=== PATIENT | male | born 1950 | race Caucasian/White ===

== ENCOUNTER → 2020-08-02 09:42 | Outpatient (BNVA) | payer MEDICARE, SELFPAY | PROVIDERS: PCP Internal Medicine; Referring Provider Internal Medicine; Visit Provider Dietitian, Registered | DX: Z76.89 Persons encountering health services in other specified circumstances (principal) ==

== ENCOUNTER → 2020-09-15 08:21 | Outpatient (BNVA) | payer MEDICARE, SELFPAY | PROVIDERS: PCP Internal Medicine; Referring Provider Internal Medicine; Visit Provider Physician Assistant | DX: E66.9 Obesity, unspecified (principal) | CPT/HCPCS: Q3014 ==

== ENCOUNTER 2021-09-07 12:23 | Outpatient (REF) | payer MEDICARE, SELFPAY | END 2021-09-07 12:24 | disposition home or self-care (01) | LOC: HO.LAB 12:23 | PROVIDERS: PCP Internal Medicine; Visit Provider Internal Medicine | DX: Z20.822 Contact with and (suspected) exposure to COVID-19 (principal) | CPT/HCPCS: C9803; U0003; U0005 ==

== ENCOUNTER 2024-05-07 08:26 | Outpatient (AMB) | payer MEDICARE, SELFPAY ==
--- NOTE | 2024-05-07 08:40 | MHC.PC.OV ---
Vital Signs 05/07/24 08:43 Height 5 ft 9 in Weight 198 lb 8 oz BMI 29.3 BP 108/54 L Blood Pressure Location Rt brachial Position Sitting Respiration 12 Pulse 75 Pulse Source Pulse Oximeter Pulse Oximetry (%) 96 Oxygen Delivery Method Room Air Intake Visit Reasons: PA from [facility] Intake Note: Patient is here to transfer from [facility] to [facility]. Patient has concerns for anxiety and would like to review medications. 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 Accompanied by: self Allergies amoxicillin Allergy (Unknown, Verified 05/07/24 08:47) Rash Tobacco use date assessed: 05/07/24 Fall risk assessment: No Falls in past year Last assessed Fall Risk: 05/07/24 Dental Screening Dental Screen Date: 05/07/24 Did you have a dental visit in the last 12 months?: Yes Did you have a dental problem in the last 6 months where you did not have access to dental care?: No Was dental information given to patient?: Patient has dentist HPI HPI Comments History of Present Illness Details The patient is a 73-year-old male with a past medical history of Lyme disease, DJD, BPH, AVNRT, AFib, left calf hematoma presenting for follow-up Patient is concerned about increasing of anxiety. His adult son continues to have addiction issues which causes a great deal of stress and anxiety. He was following with [facility], a therapist and was doing well however now needs a new therapist. He continues on sertraline which has been fairly helpful Patient has pain and numbness in the hands bilaterally. He went for evaluation of possible carpal tunnel. EMG not consistent with this. MRA neck ordered showed moderate to severe narrowing at multiple levels. Incidentally noted was a question of mucosal thickening versus mass etc. and ethmoid sinus. He has been having a few week history of increased right ear pain and upper maxillary discomfort. It is also having some dental issues. He was started on Flonase by urgent care. Cardiovascular: Follows with Cardiology. Given lack of prior CVA his history of AVNRT status post ablation decided no indication for further anticoagulation or even aspirin Last year in 2021 patient suffered from lower left extremity swelling and discomfort. CT of the leg showed findings most consistent with an evolving hematoma involving the posterior medial superficial and deep compartments of the left calf. He then had MRI which was recommended by Radiology and this was reassuring Chronic pain: Osteoarthritis and history of Lyme -knee pain: Follows with [facility]. Has history of bilateral knee replacement -low back pain: X-ray from [place] significant loss of height stenosis at L3 and S1-S3. 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 Severe bilateral neural foraminal stenosis is seen at the level with likely compression of both exiting L5 nerve roots. At L2-3 there is a left foraminal protrusion with possible compression of the exiting left L2 nerve root. Other degenerative changes as detailed above. He was referred and then evaluated by pain management rehabilitation. BPH: Stable. History of TURP Preventive Colonoscopy up-to-date. He has chronic mild anemia. ROS CONSTITUTIONAL: Denies weight loss, fever and chills. HEENT: Denies changes in vision and hearing. RESPIRATORY: Denies SOB and cough. CV: Denies palpitations and CP GI: Denies abdominal pain, nausea, vomiting and diarrhea. : Denies dysuria and urinary frequency. MSK: Denies new myalgia and joint pain. SKIN: Denies rash and pruritus. NEUROLOGICAL: Denies headache PSYCHIATRIC: Denies recent changes in mood. PHYSICAL EXAM: GENERAL: Alert and oriented x 3. NAD EYES: EOMI. Anicteric. HENT: Moist mucous membranes. No scleral icterus. No cervical lymphadenopathy. LUNGS: Clear to auscultation bilaterally. CARDIOVASCULAR: Regular rate and rhythm. No murmur. No JVD. ABDOMEN: Soft, non-tender +bs EXTREMITIES: No edema. Non-tender. SKIN: No rashes or lesions. Warm. NEUROLOGIC: No focal neurological deficits. CN II-XII grossly intact PSYCHIATRIC: Cooperative. Appropriate mood and affect [facility] Medical History Incontinence Eczema Arthritis Sinusitis Obesity Obesity Surgical History History of transurethral resection of prostate History of knee replacement procedure of right knee History of knee replacement procedure of left knee Family History Mother Cancer of kidney Father Pancreatic cancer Family/Other Breast cancer Prostate cancer Social History Housing: House Patient Tobacco Use Status: Never used Tobacco e-Cigarette/Vaping Use: Never Used service: No Current occupational status: retired Cognitive needs: No Hearing needs: Yes (wears hearing aids) Vision needs: Yes (wears glasses) Questionnaire PHQ-9 Over the last 2 weeks, how often have you been bothered by any of the following problems? 1. Little interest or pleasure in doing things: not at all 2. Feeling down, depressed, or hopeless: several days 3. Trouble falling or staying asleep, or sleeping too much: not at all 4. Feeling tired or having little energy: not at all 5. Poor appetite or overeating: not at all 6. Feeling bad about yourself - or that you are a failure or have let yourself or your family down: not at all 7. Trouble concentrating on things, such as reading the newspaper or watching television: not at all 8. Moving or speaking so slowly that other people could have noticed. Or the opposite - being so fidgety or restless that you have been moving around a lot more than usual: not at all 9. Thoughts that you would be better off or of hurting yourself in some way: not at all Total score: 1 Depression Screening Interpretation: Negative (neg) Depression Screening Done: Yes 46830 - PHQ-9 Billing: Yes Source: Developed by Drs. Mynor Sutton, Terrie Rojas, Octavio Sandhu and colleagues, with an educational emerson from [employer]. Thrive Questionnaire Date Thrive assessed: 05/07/24 I am a: Patient What is your living situation today?: I have a steady place to live Within the past 12 months, did the food you bought not last and you didn't have the money to get more?: Never true Within the past 12 months, did you worry whether your food would run out before you got money to buy more?: Never true Do you have trouble paying for medicines?: No Do you have trouble getting transportation to medical appointments?: No Do you have trouble paying your heating and electricity bill?: No Do you have trouble taking care of your child, family member or friend?: No Do you have trouble with day-to-day activities such as bathing, preparing meals, shopping, managing finances, etc.?: No Are you currently unemployed and looking for a job?: No Are you interested in more education?: No Please select the resources that you would like help with: None Currently or been in a relationship where the following occur: No concerns reported THRIVE Score: 0 AUDIT C Alcohol Use Questionnaire (AUDIT-C) 1. How often do you have a drink containing alcohol?: 2-3 times a week 2. How many drinks containing alcohol do you have on a typical day when you are drinking?: 1 or 2 3. How often do you have six or more drinks on one occasion?: Never Total Score: 3 SAV-7 AMB Questionnaire SAV-7 Date SAV - 7 assessed: 05/07/24 Feeling nervous, anxious, or on edge: 1 = Several days Not being able to stop or control worryin = Several days Worrying too much about different things: 1 = Several days Trouble relaxin = Several days Being so restless that it is hard to sit still: 1 = Several days Becoming easily annoyed or irritable: 1 = Several days Feeling afraid as if something awful might happen: 1 = Several days Total SAV-7 score (0-4 normal; 5-9 mild; 10-14 moderate; 15-21 severe): 7 Source: Developed by Drs. Mynor Sutton, Terrie Rojas, Octavio Sandhu and colleagues, with an educational emerson from [employer]. SAV-7 Assessment Billing SAV-7 Assessment Tool: SAV-7 Assessment 89610 Physical exam (Primary Care) Vital Signs: Last Vital Signs Pulse 75 05/07/24 08:43 Resp 12 05/07/24 08:43 BP 108/54 L 05/07/24 08:43 Pulse Ox 96 05/07/24 08:43 Oxygen Delivery Method Room Air 05/07/24 08:43 BMI result Body Mass Index 29.3 Tobacco/Smoking Status: Tobacco use Status Tobacco use date assessed 05/07/24 05/07/24 08:51 Patient Tobacco Use Status Never used Tobacco 05/07/24 08:51 e-Cigarette/Vaping Use Never Used 05/07/24 08:51 PHQ-9: PHQ-9 Score PHQ-9: Total score 1 05/09/24 20:09 Depression Screening Interpretation: Negative (neg) Thrive Assessment: Date of Thrive Assessment Date Thrive assessed 05/07/24 05/07/24 08:54 Currently or been in a relationship where the following occur: No concerns reported Assessment and Plan Assessment & Plan (1) Anxiety: Code(s): F41.9 - Anxiety disorder, unspecified Plan: Anxiety, stress-referral for therapy Continue SSRI (2) Hyperlipidemia: Code(s): E78.5 - Hyperlipidemia, unspecified Qualifiers: Hyperlipidemia type: mixed hyperlipidemia Qualified Code(s): E78.2 - Mixed hyperlipidemia Plan: continue statin therapy. Lipids well controlled on medications (3) Lumbar degenerative disc disease: Code(s): M51.36 - Other intervertebral disc degeneration, lumbar region Plan: stable Orders: Orders Complete Blood Count Auto Diff 6 Months D64.9 - Anemia, unspecified, E78.5 - Hyperlipidemia, unspecified, F41.9 - Anxiety disorder, unspecified, I47.19 - Other supraventricular tachycardia, M51.36 - Other intervertebral disc degeneration, lumbar region, Z12.5 - Encounter for screening for malignant neoplasm of prostate Prostate Specific Antigen 6 Months D64.9 - Anemia, unspecified, E78.5 - Hyperlipidemia, unspecified, F41.9 - Anxiety disorder, unspecified, I47.19 - Other supraventricular tachycardia, M51.36 - Other intervertebral disc degeneration, lumbar region, Z12.5 - Encounter for screening for malignant neoplasm of prostate Comprehensive Met. Panel 6 Months D64.9 - Anemia, unspecified, E78.5 - Hyperlipidemia, unspecified, F41.9 - Anxiety disorder, unspecified, I47.19 - Other supraventricular tachycardia, M51.36 - Other intervertebral disc degeneration, lumbar region, Z12.5 - Encounter for screening for malignant neoplasm of prostate Lipid Panel 6 Months D64.9 - Anemia, unspecified, E78.5 - Hyperlipidemia, unspecified, F41.9 - Anxiety disorder, unspecified, I47.19 - Other supraventricular tachycardia, M51.36 - Other intervertebral disc degeneration, lumbar region, Z12.5 - Encounter for screening for malignant neoplasm of prostate Referrals Behavioral Health Referral F41.9 - Anxiety disorder, unspecified Coding Level of Care Code Est Pt Level 5 (59840) Diagnoses Anxiety F41.9 Mixed hyperlipidemia E78.2 Hyperlipidemia type: mixed hyperlipidemia Lumbar degenerative disc disease M51.36 Additional Codes SAV-7 Assessment Billing - SAV-7 Assessment Tool: SAV-7 Assessment 47191 ([id number]) Time Spent (min) 53
[2024-05-07 08:43] VITALS: BP 108/54; PULSE 75; RESP 12; O2SAT 96; BMI 29.3
== END 2024-05-07 09:20 | disposition home or self-care (01) ==
PROVIDERS: PCP Internal Medicine; Visit Provider Internal Medicine
DX: E78.2 Mixed hyperlipidemia (principal); F41.9 Anxiety disorder, unspecified; M51.36 Other intervertebral disc degeneration, lumbar region
CPT/HCPCS: 99215

== ENCOUNTER 2024-11-19 08:28 | Outpatient (AMB) | payer MEDICARE, SELFPAY ==
--- NOTE | 2024-11-19 08:34 | A.OFFPC_ITS ---
Vital Signs 11/19/24 08:42 Height 5 ft 9 in Weight 205 lb BMI 30.3 BP 108/58 L Blood Pressure Location Lt brachial Position Sitting Respiration 14 Pulse 62 Pulse Source Pulse Oximeter Pulse Oximetry (%) 96 Oxygen Delivery Method Room Air Intake Visit Reasons: awv/physical Intake Note: Medical wellness visit [facility] Insulation Required: No Allergies amoxicillin Allergy (Unknown, Verified 11/19/24 08:34) Rash Tobacco use date assessed: 05/07/24 Fall risk assessment: 2 + Falls in past year Last assessed Fall Risk: 11/19/24 Dental Screening Dental Screen Date: 05/07/24 HPI HPI Comments History of Present Illness Details The patient is a 73-year-old male with a past medical history of Lyme disease, DJD, BPH, AVNRT, AFib, left calf hematoma presenting for follow-up Patient has pain and numbness in the hands bilaterally. He went for evaluation of possible carpal tunnel. EMG not consistent with this. MRA neck ordered showed moderate to severe narrowing at multiple levels. Incidentally noted was a question of mucosal thickening versus mass etc. and ethmoid sinus. He has been having a few week history of increased right ear pain and upper maxillary discomfort. It is also having some dental issues. He was started on Flonase by urgent care. Cardiovascular: Follows with [facility]. Given lack of prior CVA his history of AVNRT status post ablation decided no indication for further anticoagulation or even aspirin Last year in 2021 patient suffered from lower left extremity swelling and discomfort. CT of the leg showed findings most consistent with an evolving hematoma involving the posterior medial superficial and deep compartments of the left calf. He then had MRI which was recommended by Radiology and this was reassuring Chronic pain: Osteoarthritis and history of Lyme . Sees [facility] and dr Waldrop in pain management -knee pain: Follows with [facility]. Has hist ory of bilateral knee replacement -low back pain: X-ray from [place] signi ficant loss of height stenosis at L3 and S1-S3. 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 Severe bilateral neural foraminal stenosis is seen at the level with likely compression of both exiting L5 nerve roots. At L2-3 there is a left foraminal protrusion with possible compression of the exiting left L2 nerve root. Other degenerative changes as detailed above. He was referred and then evaluated by pain management rehabilitation. BPH: Stable. History of TURP. Follows with Dr Christianson RAIN: Follow with Dr Davis for Sleep apnea Follows with ophtho Dr Carballo BH: Follows with family counseling. Son seems to be doing a little bit better. [facility]es [facility]. Son is following with [facility]. Patient is concerned about increasing of anxiety. His adult son continues to have addiction issues which causes a great deal of stress and anxiety. He was following with [facility], a therapist and was doing well however now needs a new therapist. He continues on sertraline which has been fairly helpful Preventive Colonoscopy up-to-date. He has chronic mild anemia. Had RSV and flu vaccine HRA reviewed-to scan Care team updated-HPI 12/06 memory No falls Medications reconciled ROS CONSTITUTIONAL: Denies weight loss, fever and chills. HEENT: Denies changes in vision and hearing. RESPIRATORY: Denies SOB and cough. CV: Denies palpitations and CP GI: Denies abdominal pain, nausea, vomiting and diarrhea. : Denies dysuria and urinary frequency. MSK: Denies new myalgia and joint pain. SKIN: Denies rash and pruritus. NEUROLOGICAL: Denies headache PSYCHIATRIC: Denies recent changes in mood. PHYSICAL EXAM: GENERAL: Alert and oriented x 3. NAD EYES: EOMI. Anicteric. HENT: Moist mucous membranes. No scleral icterus. No cervical lymphadenopathy. LUNGS: Clear to auscultation bilaterally. CARDIOVASCULAR: Regular rate and rhythm. No murmur. No JVD. ABDOMEN: Soft, non-tender +bs EXTREMITIES: No edema. Non-tender. SKIN: No rashes or lesions. Warm. NEUROLOGIC: No focal neurological deficits. CN II-XII grossly intact PSYCHIATRIC: Cooperative. Appropriate mood and affect [facility] Medical History Incontinence Eczema Arthritis Sinusitis Obesity Obesity Surgical History History of transurethral resection of prostate History of knee replacement procedure of right knee History of knee replacement procedure of left knee Family History Mother Cancer of kidney Father Pancreatic cancer Family/Other Breast cancer Prostate cancer Social History Housing: House Alcohol intake: current Patient Tobacco Use Status: Never used Tobacco e-Cigarette/Vaping Use: Never Used service: No Current occupational status: retired Cognitive needs: No Hearing needs: Yes (wears hearing aids) Vision needs: Yes (wears glasses) Questionnaire PHQ-9 Over the last 2 weeks, how often have you been bothered by any of the following problems? 1. Little interest or pleasure in doing things: several days 2. Feeling down, depressed, or hopeless: not at all 3. Trouble falling or staying asleep, or sleeping too much: not at all 4. Feeling tired or having little energy: not at all 5. Poor appetite or overeating: not at all 6. Feeling bad about yourself - or that you are a failure or have let yourself or your family down: several days 7. Trouble concentrating on things, such as reading the newspaper or watching television: not at all 8. Moving or speaking so slowly that other people could have noticed. Or the opposite - being so fidgety or restless that you have been moving around a lot more than usual: not at all 9. Thoughts that you would be better off or of hurting yourself in some way: not at all Total score: 2 Depression Screening Interpretation: Negative Depression Screening Done: Yes 12760 - PHQ-9 Billing: Yes Source: Developed by Drs. Mynor Sutton, Terrie Rojas, Octavio Sanduh and colleagues, with an educational emerson from [employer]. Thrive Questionnaire Date Thrive assessed: 11/16/24 I am a: Patient What is your living situation today?: I have a steady place to live Within the past 12 months, did the food you bought not last and you didn't have the money to get more?: Never true Within the past 12 months, did you worry whether your food would run out before you got money to buy more?: Never true Do you have trouble paying for medicines?: No Do you have trouble getting transportation to medical appointments?: No Do you have trouble paying your heating and electricity bill?: No Do you have trouble taking care of your child, family member or friend?: No Do you have trouble with day-to-day activities such as bathing, preparing meals, shopping, managing finances, etc.?: No Are you currently unemployed and looking for a job?: No Are you interested in more education?: Yes Please select the resources that you would like help with: None Currently or been in a relationship where the following occur: No concerns reported THRIVE Score: 0 AUDIT C Alcohol Use Questionnaire (AUDIT-C) 1. How often do you have a drink containing alcohol?: 4 or more times a week 2. How many drinks containing alcohol do you have on a typical day when you are drinking?: 1 or 2 3. How often do you have six or more drinks on one occasion?: Never Total Score: 4 SAV-7 AMB Questionnaire SAV-7 Date SAV - 7 assessed: 11/19/24 Feeling nervous, anxious, or on edge: 1 = Several days Not being able to stop or control worryin = Not at all Worrying too much about different things: 0 = Not at all Trouble relaxin = Several days Being so restless that it is hard to sit still: 0 = Not at all Becoming easily annoyed or irritable: 1 = Several days Feeling afraid as if something awful might happen: 0 = Not at all Total SAV-7 score (0-4 normal; 5-9 mild; 10-14 moderate; 15-21 severe): 3 Source: Developed by Drs. Mynor Sutton, Terrie Rojas, Octavio Sandhu and colleagues, with an educational emerson from [employer]. SAV-7 Assessment Billing SAV-7 Assessment Tool: SAV-7 Assessment 78851 Physical exam (Primary Care) Vital Signs: Last Vital Signs Pulse 62 11/19/24 08:42 Resp 14 11/19/24 08:42 BP 108/58 L 11/19/24 08:42 Pulse Ox 96 11/19/24 08:42 Oxygen Delivery Method Room Air 11/19/24 08:42 BMI result Body Mass Index 30.3 Tobacco/Smoking Status: Tobacco use Status Tobacco use date assessed 05/07/24 11/19/24 08:34 Patient Tobacco Use Status Never used Tobacco 11/19/24 08:34 e-Cigarette/Vaping Use Never Used 02/14/25 08:34 PHQ-9: PHQ-9 Score PHQ-9: Total score 2 11/19/24 08:34 Depression Screening Interpretation: Negative Thrive Assessment: Date of Thrive Assessment Date Thrive assessed 11/16/24 11/19/24 08:34 Currently or been in a relationship where the following occur: No concerns reported Coding Level of Care Code Est Pt Level 4 (95531) Complex EM visit Add On G2211 Diagnoses Encounter for annual wellness exam in Medicare patient Z00.00 Mixed hyperlipidemia E78.2 Hyperlipidemia type: mixed hyperlipidemia Degeneration of intervertebral disc of lumbar region with discogenic back pain and lower extremity pain M51.362 Disc-related pain type: discogenic back pain and lower extremity pain Anxiety F41.9 Additional Codes SAV-7 Assessment Billing - SAV-7 Assessment Tool: SAV-7 Assessment 14078 ( [id number]) PHQ-9 - 20887 - PHQ-9 Billing: Yes ([id number]) Assessment & Plan Assessment & Plan (1) Encounter for annual wellness exam in Medicare patient: Code(s): Z00.00 - Encounter for general adult medical examination without abnormal findings Category: Medical Plan: see HPI Preventive measures up to date. Interval history reviewed (2) Hyperlipidemia: Code(s): E78.5 - Hyperlipidemia, unspecified Category: Medical Qualifiers: Hyperlipidemia type: mixed hyperlipidemia Qualified Code(s): E78.2 - Mixed hyperlipidemia Plan: stable on current medication (3) Lumbar degenerative disc disease: Code(s): M51.36 - Other intervertebral disc degeneration, lumbar region Category: Medical Qualifiers: Disc-related pain type: discogenic back pain and lower extremity pain Qualified Code(s): M51.362 - Other intervertebral disc degeneration, lumbar region with discogenic back pain and lower extremity pain Plan: stable (4) Anxiety: Code(s): F41.9 - Anxiety disorder, unspecified Category: Medical Plan: stable with ongoing therapy
[2024-11-19 08:42] VITALS: BP 108/58; PULSE 62; RESP 14; O2SAT 96; BMI 30.3
--- OUTSIDE RECORDS SUMMARY | 2024-11-19 08:45 | XMS_ITS | Data Portability ---
Author Organization [place] - [facility], Allergy Address [address] [address] Care Team Providers Care Fish Cleaner Name Role Phone ReynaldoROHITH KEYES Primary Care Provider [phone] Assessment Encounter Date Assessment Date Assessment LastModified by Organization Details LastModified Time 08/02/2024 08/02/2024 On examination today there is no purulent rhinorrhea noted. Nasal mucosa is healthy in appearance. We again discussed that his CT scan findings are mild, and without any symptoms, there is no further intervention or follow up required. He may call if needed. [email or web address] Not available 08/02/2024 11:09:10 Plan of Treatment Reminders Order Date Submit Date Provider Last Modified By Organization Details Last Modified Time Details Appointments None record ed. Lab None record ed. Referral None record ed. Procedures None record ed. Surgeries None record ed. Imaging None record ed. Medication Orders None record ed. Patient TargetsNo targets recorded. Patient InstructionsNo instructions recorded. Reason for Referral None Reported. Results Created Date Observation Date Name Description Value Unit Range Abnormal Flag Note LastModifiedBy Organization Detail LastModifiedTime 08/03/20 24 02/09/2024 CT, maxil lofac ial, w/o contr ast No observ ation record ed. [email or web address] Not Available 2023 11:52:35 08/03/20 24 12/18/2023 MRI, cervi armen spine , w/o contr ast No observ ation record ed. [email or web address] Not Available 2023 11:56:48 Result Notes None recorded. Problems Name Problem SNOMED Code Status Onset Date Resolution Date Notes Provider Name and Address Organization Details Recorded Time Chronic ethmoidal sinusitis 95906920 Active 024 VINCENT MTZ MD 100 [facility] 100, [place], [address] , [place] - [facility] 12:14:38 Toothache 41353712 Active 024 VINCENT MTZ MD 100 [facility] [place],[address] [address], [place], [address] , [place] - [facility] [place] 4 12:14:47 Atypical facial pain 71563503 Active 024 VINCENT MTZ MD 100 [facility] [place] 100, [place], [address] , [place] - [facility] [place] 4 12:21:23 Problem Notes None recorded. Procedures Surgical History Date Name Laterality Status Provider Name and Address Organization Details Recorded Time 03/04/2024 NasalEndos copy_DP completed VINCENT MTZ MD 100 [facility],[place] [address], [place], [address], [place] - [facility] 03/04/2024 12:20:41 Imaging Results Imaging Date Name Status LastModified by Organiz ation Details LastModified Time 02/09/2024 CT, maxillofacial , w/o contrast completed Information not available 08/03/2024 11:52:35 12/18/2023 MRI, cervical spine, w/o contrast completed Information not available 08/03/2024 11:56:48 Procedure Notes None recorded. Medical Equipment None Reported. Medications Name Sig Start Date Stop Date Status Note LastModified by Organization Details LastModified Time doxycycline hyclate 100 mg capsule TAKE 1 CAPSULE BY MOUTH TWICE A DAY FOR 21 DAYS active Not Available Not Available No t Available atorvastatin 20 mg tablet TAKE 1 TABLET BY MOUTH EVERY DAY active Not Available Not Available No t Available clindamycin HCl 300 mg capsule TAKE 2 CAPSULES ONE HOUR PRIOR TO ANY DENTAL WORK/CLEANI NGS. NEEDED active Not Available Not Available No t Available sildenafil 100 mg tablet TAKE 1 TABLET BY MOUTH PRIOR TO SEXUAL ACTIVITY NEEDED- NOT COVERED active Not Available Not Available No t Available tamsulosin 0.4 mg capsule TAKE 2 CAPSULES BY MOUTH AT BEDTIME active Not Available Not Available No t Available betamethason e dipropionate 0.05 % topical cream APPLY TO AFFECTED AREA TWICE A DAY FOR 14 DAYS NEEDED FOR RASH active Not Available Not Available No t Available mupirocin 2 % topical ointment APPLY TO AFFECTED AREA ON THE KNEE ONCE DAILY active Not Available Not Available No t Available gabapentin 100 mg capsule active Not Available Not Available Not Available methylpredni solone 4 mg tablets in a dose pack TAKE 6 TABLETS ON DAY 1 DIRECTED ON PACKAGE AND DECREASE BY 1 TAB EACH DAY FOR A TOTAL OF 6 DAYS active Not Available Not Available No t Available fluticasone propionate 50 mcg/actuatio n nasal spray,suspen ricardo SPRAY 1 SPRAY INTO EACH NOSTRIL EVERY DAY *SHAKE WEL BEFORE USING* active Not Available Not Available No t Available sertraline 50 mg tablet active Not Available Not Available Not Available doxycycline hyclate 100 mg tablet TAKE 1 TABLET BY MOUTH EVERY 12 HOURS FOR 14 DAYS active Not Available Not Available Not Available finasteride 5 mg tablet TAKE 1 TABLET BY MOUTH EVERY DAY active Not Available Not Available No t Available oxycodone 5 mg tablet PLEASE SEE ATTACHED FOR DETAILED DIRECTIONS active Not Available Not Available N ot Available diclofenac 1 % topical gel APPLY TO AFFECTED AREA 4 TIMES A DAY active Not Available Not Available Not Available Tiadylt ER 180 mg capsule,exte nded release active Not Available Not Available Not Available Vitals Date Recorded Heart rate Body temperature Body height Body mass index (BMI) Body weight Systolic blood pressure Diastolic blood pressure Provider Name and Address Organization Details Last Updated DateTime 4 78 /min 97 [degF] 175.26 cm 29.5 kg/m2 09404.4 7 g 117 mm[Hg] 73 mm[Hg] Dari Harper i [place] - [facility] 4 11:52:18 Date Recorded Body height Body mass index (BMI) Body weight Provider Name and Address Organization Details Last Updated DateTime 08/02/2024 175.26 cm 29.5 kg/m2 24020.47 g Dari Shultz [place] [facility] 08/02/2024 10:36:11 Social History None recorded. Functional Status None recorded. Mental Status None recorded. Family History Nothing Reported. Medical History No medical history recorded. Past Encounters Encounter ID Performer Location Encounter Start Date Encounter Closed Date Diagnosis/Indication Diagnosis SNOMED-CT Code Diagnosis ICD10 Code Diagnosis Note [id number] VINCENT MTZ MD [facility] 100 [place] [address] 03/04/2024 11:25:37 03/04/2024 12:27:55 Chronic ethmoidal sinusitis 98124839 J32.2 Symptomati raz improved on doxy. No purulence or polyps on nasal endoscopy. No need for surgical interventi on. I recommend he complete his course of doxy and have regular dental visits. I personally reviewed his CT scan. Toothache 46843346 K08.8 9 resolved. Atypical facial pain 713 82932 G50.1 resolved [id number] ADAMA RYAN MD [facility] on [address] [place] [address] 08/02/2024 10:33:31 08/02/2024 10:58:27 Chronic ethmoidal sinusitis 22864907 J32.2 Health Concerns Section Related Observation LastModified by Organization Detai ls LastModified Time None Recorded Concern Status LastModified by Organization Details LastModified Time None Recorded Advance Directives Directive None Recorded Payers Encounter Date Sequence Insurance Name Policy Number Policy King Covered Member ID King Member ID Guarantor Name 03/04/2024 1 [place] [employer] Vincent Beal [id number] Vincent Beal 03/04/2024 2 [facility] [id number] Vincent Beal [id number] Vincent Beal 08/02/2024 1 [place] [facility] GOVERNMENT SERVICES Vincent Beal [id number] Vincent Beal 08/02/2024 2 [facility] [id number] Vincent Beal [id number] Vincent Beal Notes Date Note Type Note Provider Name and Address Organization Details Recorded Time 03/04/2024 text/html He presents for sinusitis. He had a CT max/face 02/09/24 which showed maxillary and ethmoidal sinus disease (on my personal review it was very mild). He reports poor teeth and dental pain in his right maxillary teeth. This has resolved. He is 1 week into a 2 week course of doxycycline. He has not had recurring sinusitis. VINCENT MTZ MD 100 [facility],[place] [address], [place], [address], [place] - [facility] 03/04/2024 12:22:10 08/02/2024 text/html 73 year old male presents today for follow up for sinus issues.He had an MRI in January of his c-spine which showed an incidental finding or some ethmoid sinus process. A follow up CT maxillofacial at [facility] showed opacification of bilateral ethmoid and maxillary sinuses. He was placed on two weeks of doxycycline and advised to follow up in our practice. He saw in May at which time the CT findings were felt to be minimal. Nasal endoscopy was normal. Given he was asymptomatic, no further follow up was recommended. The patient denies any changes in his health. He has chronic dental issues, but no chronic facial pain. No nasal drainage. ADAMA RYAN MD 100 [facility] 100, [place], [address], [place] [facility] 08/02/2024 16:32:14
== END 2024-11-19 09:20 | disposition home or self-care (01) ==
PROVIDERS: PCP Internal Medicine; Visit Provider Internal Medicine
DX: Z00.00 Encounter for general adult medical examination without abnormal findings (principal); E78.2 Mixed hyperlipidemia; M51.362 Other intervertebral disc degeneration, lumbar region with discogenic back pain and lower extremity pain; F41.9 Anxiety disorder, unspecified

== ENCOUNTER → 2024-11-19 08:28 | Outpatient (BNVA) | payer MEDICARE, SELFPAY | PROVIDERS: PCP Internal Medicine; Visit Provider Internal Medicine | DX: Z00.00 Encounter for general adult medical examination without abnormal findings (principal); M19.90 Unspecified osteoarthritis, unspecified site; N40.0 Benign prostatic hyperplasia without lower urinary tract symptoms; I49.1 Atrial premature depolarization; E78.2 Mixed hyperlipidemia; M51.362 Other intervertebral disc degeneration, lumbar region with discogenic back pain and lower extremity pain; F41.9 Anxiety disorder, unspecified | CPT/HCPCS: 96127; 99212 ==

== ENCOUNTER 2024-11-26 08:29 | Outpatient (REF) | payer MEDICARE, SELFPAY ==
--- OUTSIDE RECORDS SUMMARY | 2024-11-26 08:42 | XMS_ITS | Data Portability ---
Author Organization [place] - [facility], Allergy Address [address] [address] Care Team Providers Care Wrecking Supervisor Name Role Phone ReynaldoROHITH KEYES Primary Care Provider Assessment Encounter Date Assessment Date Assessment LastModified [...] Organization Details Recorded Time Chronic ethmoidal sinusitis 42210844 Active 024 VINCENT MTZ MD 100 [facility] 100, [place], [address] , [place] - [facility] 12:14:38 Toothache 62445411 Active 024 VINCENT MTZ MD 100 [facility] [place],[place] [address], [place], [address] , [place] - [facility] [place] 4 12:14:47 Atypical facial pain 34143761 Active 024 VINCENT MTZ MD 100 [facility] [place] 100, [place], [address] , [place] - [facility] [place] 4 12:21:23 Problem Notes None recorded. Procedures Surgical History Date Name Laterality Status Provider Name and Address Organization Details Recorded Time 03/04/2024 NasalEndos copy_DP completed VINCENT MTZ MD 100 [facility],[place] [address], [place], [address], [place] - [facility] 03/04/2024 12:20:41 Imaging Results Imaging Date Name [...] /min 97 [degF] 175.26 cm 29.5 kg/m2 10745.4 7 g 117 mm[Hg] 73 mm[Hg] Dari Harper i [place] - [facility] 4 11:52:18 Date Recorded Body height Body mass index (BMI) Body weight Provider Name and Address Organization Details Last Updated DateTime 08/02/2024 175.26 cm 29.5 kg/m2 71321.47 g Dari Shultz [place] [facility] 08/02/2024 10:36:11 Social History None recorded. Functional Status None recorded. Mental Status None recorded. Family History Nothing Reported. Medical History No medical history recorded. Past Encounters Encounter ID Performer Location Encounter Start Date Encounter Closed Date Diagnosis/Indication Diagnosis SNOMED-CT Code Diagnosis ICD10 Code Diagnosis Note [id number] VINCENT MTZ MD [facility] 100 [place] [address] 03/04/2024 11:25:37 03/04/2024 12:27:55 Chronic ethmoidal sinusitis 21902775 J32.2 Symptomati raz improved on doxy. No purulence or polyps on nasal endoscopy. No need for surgical interventi on. I recommend he complete his course of doxy and have regular dental visits. I personally reviewed his CT scan. Toothache 86886611 K08.8 9 resolved. Atypical facial pain 713 60139 G50.1 resolved [id number] ADAMA RYAN MD [facility] on [address] [place] [address] 08/02/2024 10:33:31 08/02/2024 10:58:27 Chronic ethmoidal sinusitis 40388086 J32.2 Health Concerns Section Related Observation LastModified by Organization Detai ls LastModified Time None Recorded Concern Status LastModified by Organization Details LastModified Time None Recorded Advance Directives Directive None Recorded Payers Encounter Date Sequence Insurance Name Policy Number Policy King Covered Member ID King Member ID Guarantor Name 03/04/2024 1 [place]ATIONAL [employer] Vincent Beal [id number] Vincent Beal 03/04/2024 2 [facility]) [id number] Vincent Beal [id number] Vincent Beal 08/02/2024 1 [place]IC[place]: [facility] GOVERNMENT SERVICES Vincent Beal [id number] Vincent Beal 08/02/2024 2 [facility]) [id number] Vincent Beal [id number] Vincent Beal Notes Date Note Type [...] had recurring sinusitis. VINCENT MTZ MD 100 [facility],[place] [address], [place], [address], [place] - [facility] 03/04/2024 12:22:10 08/02/2024 text/html 73 year old male presents today for follow up for sinus issues.He had an MRI in January of his c-spine which showed an incidental finding or some ethmoid sinus process. A follow up CT maxillofacial at [facility] showed opacification of bilateral ethmoid and [...] No nasal drainage. ADAMA RYAN MD 100 [facility] 100, [place], [address], [place] [facility] 08/02/2024 16:32:14
[2024-11-26 11:08] LABS: MANUAL DIFF FLAG NO
[2024-11-26 11:15] LABS: Basophils Percent Auto 0.4 % (0-2); Eosinophils Absolute Auto 0.3 X10*3/uL (0.0-0.4); Eosinophils Percent Auto 5.4 % (0-4); Hematocrit 42.8 % (42.0-52.0); Hemoglobin 14.5 g/dl (14.0-18.0); Imm Gran Abs Auto 0.02 X10*3/uL (0.00-0.03); Imm Gran Pct Auto 0.4 % (0.0-0.4); Lymphocytes Absolute Auto 1.1 X10*3/uL (1.2-4.9); Lymphocytes Percent Auto 22.9 % (20-40); Mean Corpuscular HGB Conc 33.9 g/dl (31.0-36.0); Mean Corpuscular Hemoglobin 32.2 pg (27.0-33.0); Mean Corpuscular Volume 94.9 fL (80.0-98.0); Mean Platelet Volume 10.6 fL (9.4-12.4); Monocytes Absolute Auto 0.5 X10*3/uL (0.1-1.2); Monocytes Percent Auto 10.8 % (2-11); Neutrophils Absolute Auto 2.8 x10*3/uL (2.0-8.3); Neutrophils Percent Auto 60.1 % (45-73); Platelet Count 136 X10*3/uL (160-400); Red Blood Count 4.51 X10*6/uL (4.60-5.80); Red Cell Distribution Width 11.9 % (11.0-16.0); White Blood Count 4.6 X10*3/uL (4.8-10.8)
[2024-11-26 11:42] LABS: Alanine Aminotransferase 25 U/L (0-40); Albumin Level 4.1 g/dL (3.5-5.0); Alkaline Phosphatase 54 U/L (39-117); Anion Gap 10 (12-20); Aspartate Amino Transferase 24 U/L (5-37); Bilirubin Total 0.7 mg/dL (0.0-1.0); Blood Urea Nitrogen 17 mg/dL (9-16); Calcium 9.2 mg/dL (8.4-10.2); Carbon Dioxide 30 mmol/L (22-29); Chloride 104 mmol/L (96-108); Cholesterol 159 mg/dL (<200); Estimated Glomerular Filt Rate > 60; Glucose Random 89 mg/dL (60-115); HDL Cholesterol 61 mg/dL (>40); LDL Cholesterol Calculated 82 mg/dL (<100); Potassium 3.9 mmol/L (3.3-5.1); Sodium 140 mmol/L (135-145); Total Protein 7.2 g/dL (6.5-8.0); Triglycerides 83 mg/dL (<150)
[2024-11-26 11:48] LABS: Prostate Specific Antigen 0.66 ng/mL (<0.05-4.0)
== END 2024-11-26 08:30 | disposition home or self-care (01) ==
LOC: HO.WFDLDS 08:29
PROVIDERS: Visit Provider Internal Medicine
DX: D64.9 Anemia, unspecified (principal); M51.360 Other intervertebral disc degeneration, lumbar region with discogenic back pain only; F41.9 Anxiety disorder, unspecified; I47.19 Other supraventricular tachycardia; E78.5 Hyperlipidemia, unspecified; Z12.5 Encounter for screening for malignant neoplasm of prostate
CPT/HCPCS: 36415; 80053; 80061; 84153; 85025

== ENCOUNTER 2025-01-17 13:13 | Outpatient (AMB) | payer MEDICARE, SELFPAY ==
--- NOTE | 2025-01-17 13:22 | A.OFFPC_ITS ---
Vital Signs 01/17/25 13:24 Height 5 ft 9 in Weight 205 lb 4 oz BMI 30.3 BP 112/52 L Blood Pressure Location Rt brachial Position Sitting Respiration 16 Pulse 81 Pulse Source Pulse Oximeter Pulse Oximetry (%) 96 Oxygen Delivery Method Room Air Intake Visit Reasons: Discharge Follow-Up Intake Note: Hospital follow up. Needs antibiotic for dental appt coming up in two weeks. Layout Mechanic Required: No Allergies amoxicillin Allergy (Unknown, Verified 01/17/25 13:22) Rash Tobacco use date assessed: 01/17/25 Fall risk assessment: 2 + Falls in past year (3) Last assessed Fall Risk: 01/17/25 Dental Screening Dental Screen Date: 01/17/25 Did you have a dental visit in the last 12 months?: Yes Did you have a dental problem in the last 6 months where you did not have access to dental care?: No Was dental information given to patient?: Patient has dentist HPI HPI Comments History of Present Illness Details The patient is a 74-year-old male with a past medical history of Lyme disease, DJD, BPH, AVNRT, AFib, left calf hematoma presenting for follow-up Recently hospitalized from 01/06/2025-01/07/2025. 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 Was just jotting down notes when he lost consciousness. No prodromal symptoms. No positional changes. Labs with Na 130- ACS r/o. Negative orthostatics. Telemetry normal. Cardiovascular: Follows with [facility]. Given lack of prior CVA his history of AVNRT status post ablation decided no indication for further anticoagulation or even aspirin. Recent syncopal episode as noted above Last year in 2021 patient suffered from lower left extremity swelling and discomfort. CT of the leg showed findings most consistent with an evolving hematoma involving the posterior medial superficial and deep compartments of the left calf. He then had MRI which was recommended by Radiology and this was reassuring Chronic pain: Osteoarthritis and history of Lyme . Sees [facility] and dr Waldrop in pain management -Neck pain-severe DDD. Upcoming visit [facility]. Patient has pain and numbness in the hands bilaterally. He went for evaluation of possible carpal tunnel. EMG not consistent with this. MRA neck ordered showed moderate to severe narrowing at multiple levels. -knee pain: Follows with [facility]. Has hist ory of bilateral knee replacement -low back pain: X-ray from [place] signi ficant loss of height stenosis at L3 and S1-S3. 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 Severe bilateral neural foraminal stenosis is seen at the level with likely compression of both exiting L5 nerve roots. At L2-3 there is a left foraminal protrusion with possible compression of the exiting left L2 nerve root. Other degenerative changes as detailed above. He was referred and then evaluated by pain management rehabilitation. BPH: Stable. History of TURP. Follows with Dr Christianson RAIN: Follow with Dr Davis for Sleep apnea Follows with ophtho Dr Carballo BH: Follows with counselor. Son continues to have addition issues. Goes to [facility]. Son is following with [facility]. Patient is concerned about increasing of anxiety. His adult son continues to have addiction issues which causes a great deal of stress and anxiety. He was following with [facility], a therapist and was doing well however now needs a new therapist. He continues on sertraline which has been fairly helpful Preventive Colonoscopy up-to-date. He has chronic mild anemia. Had RSV and flu vaccine ROS see HPI PHYSICAL EXAM: GENERAL: Alert and oriented x 3. NAD EYES: EOMI. Anicteric. HENT: Moist mucous membranes. No scleral icterus. No cervical lymphadenopathy. LUNGS: Clear to auscultation bilaterally. CARDIOVASCULAR: Regular rate and rhythm. No murmur. No JVD. ABDOMEN: Soft, non-tender +bs EXTREMITIES: No edema. Non-tender. SKIN: No rashes or lesions. Warm. NEUROLOGIC: No focal neurological deficits. CN II-XII grossly intact PSYCHIATRIC: Cooperative. Appropriate mood and affect [facility] Medical History Incontinence Eczema Arthritis Sinusitis Obesity Obesity Surgical History History of transurethral resection of prostate History of knee replacement procedure of right knee History of knee replacement procedure of left knee Family History Mother Cancer of kidney Father Pancreatic cancer Family/Other Breast cancer Prostate cancer Social History Housing: House Alcohol intake: current Patient Tobacco Use Status: Never used Tobacco e-Cigarette/Vaping Use: Never Used service: No Current occupational status: retired Cognitive needs: No Hearing needs: Yes (wears hearing aids) Vision needs: Yes (wears glasses) Questionnaire Thrive Questionnaire Date Thrive assessed: 11/16/24 AUDIT C Alcohol Use Questionnaire (AUDIT-C) 1. How often do you have a drink containing alcohol?: 2-3 times a week 2. How many drinks containing alcohol do you have on a typical day when you are drinking?: 1 or 2 3. How often do you have six or more drinks on one occasion?: Never Total Score: 3 SAV-7 AMB Questionnaire SAV-7 Date SAV - 7 assessed: 11/19/24 Source: Developed by Drs. Mynor Sutton, Terrie Rojas, Octavio Sandhu and colleagues, with an educational emerson from [employer]. Physical exam (Primary Care) Vital Signs: Last Vital Signs Pulse 81 01/17/25 13:24 Resp 16 01/17/25 13:24 BP 112/52 L 01/17/25 13:24 Pulse Ox 96 01/17/25 13:24 Oxygen Delivery Method Room Air 01/17/25 13:24 BMI result Body Mass Index 30.3 Tobacco/Smoking Status: Tobacco use Status Tobacco use date assessed 01/17/25 01/17/25 13:32 Patient Tobacco Use Status Never used Tobacco 01/17/25 13:32 e-Cigarette/Vaping Use Never Used 01/17/25 13:32 Thrive Assessment: Date of Thrive Assessment Date Thrive assessed 11/16/24 01/17/25 13:32 Coding Level of Care Code Est Pt Level 4 (20153) Complex EM visit Add On G2211 Diagnoses Syncope R55 Hyponatremia E87.1 Anxiety F41.9 AVNRT (AV alex re-entry tachycardia) I47.19 Assessment & Plan Assessment & Plan (1) Syncope: Code(s): R55 - Syncope and collapse Category: Medical (2) Hyponatremia: Code(s): E87.1 - Hypo-osmolality and hyponatremia Category: Medical (3) Anxiety: Code(s): F41.9 - Anxiety disorder, unspecified Category: Medical (4) AVNRT (AV alex re-entry tachycardia): Code(s): I47.19 - Other supraventricular tachycardia Category: Medical Plan hospital dc follow up hospital discharge reviewed. Labs reviewed. Recheck Na. Patient was well hydrated per history. concern for arryhthmia given history. Recommend urgent f/up with cardiology Neck DDD-follow up with NS as planned Orders: Orders Comprehensive Met. Panel Today E87.1 - Hypo-osmolality and hyponatremia Complete Blood Count Auto Diff Today D69.6 - Thrombocytopenia, unspecified Referrals Cardiology Referral I47.19 - Other supraventricular tachycardia, R55 - Syncope and collapse Medications: New azithromycin Take 500mg oral once one hour prior to dental work 500 mg PO ONCE 90 days PRN 10 tabs 1RF dental prophylaxis prednisone 40 mg (2 x 20 mg) PO DAILY 10 tabs 0RF cyclobenzaprine 10 mg PO BEDTIME PRN 30 tabs 0RF muscle spasm
[2025-01-17 13:24] VITALS: BP 112/52; PULSE 81; RESP 16; O2SAT 96; BMI 30.3
--- OUTSIDE RECORDS SUMMARY | 2025-01-17 15:11 | XMS_ITS | Data Portability ---
Author Organization [place] [facility], Allergy Address [address] [address] Care Team Providers Care Rn Gyn Name Role Phone ReynaldoROHITH KEYES Primary Care Provider [phone] Assessment Encounter Date Assessment Date Assessment LastModified [...] Organization Details Recorded Time Chronic ethmoidal sinusitis [id number] Active 024 VINCENT MTZ MD 100 [facility] [place] [address], [place], [address] , [place] - [facility] 12:14:38 Toothache 99405229 Active 024 VINCENT MTZ MD 100 [facility] [place],[facility] 100, [place], [address] , [place] [facility] [place] 4 12:14:47 Atypical facial pain 99055868 Active 024 VINCENT MTZ MD 100 [facility] [place],[facility] 100, [place], [address] , [place] [facility] [place] 4 12:21:23 Problem Notes None recorded. Procedures Surgical History Date Name Laterality Status Provider Name and Address Organization Details Recorded Time 03/04/2024 NasalEndos copy_DP completed VINCENT MTZ MD 100 [facility] [address], [place], [address], [place] [facility] 03/04/2024 12:20:41 Imaging Results Imaging Date [...] /min 97 [degF] 175.26 cm 29.5 kg/m2 05904.4 7 g 117 mm[Hg] 73 mm[Hg] Dari Harper i [place] [facility] 4 11:52:18 Date Recorded Body height Body mass index (BMI) Body weight Provider Name and Address Organization Details Last Updated DateTime 08/02/2024 175.26 cm 29.5 kg/m2 40114.47 g Dari Shultz [place] [facility] 08/02/2024 10:36:11 Social History None recorded. Functional Status None recorded. Mental Status None recorded. Family History Nothing Reported. Medical History No medical history recorded. Past Encounters Encounter ID Performer Location Encounter Start Date Encounter Closed Date Diagnosis/Indication Diagnosis SNOMED-CT Code Diagnosis ICD10 Code Diagnosis Note [id number] VINCENT MTZ MD [facility] 100 [place] [address] 03/04/2024 11:25:37 03/04/2024 12:27:55 Chronic ethmoidal sinusitis 48861931 J32.2 Symptomati raz improved on doxy. No purulence or polyps on nasal endoscopy. No need for surgical interventi on. I recommend he complete his course of doxy and have regular dental visits. I personally reviewed his CT scan. Toothache 69198787 K08.8 9 resolved. Atypical facial pain 713 81301 G50.1 resolved [id number] ADAMA RYAN MD [facility] on [address] [place] [address] 08/02/2024 10:33:31 08/02/2024 10:58:27 Chronic ethmoidal sinusitis 30707013 J32.2 Health Concerns Section Related Observation LastModified by Organization Detai ls LastModified Time None Recorded Concern Status LastModified by Organization Details LastModified Time None Recorded Advance Directives Directive None Recorded Payers Encounter Date Sequence Insurance Name Policy Number Policy King Covered Member ID King Member ID Guarantor Name 03/04/2024 1 [place]IC[place] [employer] Vincent Beal [id number] Vincent Beal 03/04/2024 2 [facility] [place] (MEDICARE SUPPLEMENT) [id number] Vincent Beal [id number] Vincent Beal 08/02/2024 1 [place] B[place]: [facility] Vincent Beal [id number] Vincent Beal 08/02/2024 2 [facility]: [place] (MEDICARE SUPPLEMENT) [id number] Vincent Beal [id number] Vincent Beal Notes Date Note Type [...] had recurring sinusitis. VINCENT MTZ MD 100 [facility] [address], [place], [address], [place] [facility] 03/04/2024 12:22:10 08/02/2024 text/html 73 year old male presents today for follow up for sinus issues.He had an MRI in January of his c-spine which showed an incidental finding or some ethmoid sinus process. A follow up CT maxillofacial at [facility] showed opacification of bilateral ethmoid and maxillary [...] No nasal drainage. ADAMA RYAN MD 100 [facility] 100, [place], [address], [place] [facility] 08/02/2024 16:32:14
== END 2025-01-17 14:08 | disposition home or self-care (01) ==
PROVIDERS: PCP Internal Medicine; Visit Provider Internal Medicine
DX: R55 Syncope and collapse (principal); E87.1 Hypo-osmolality and hyponatremia; F41.9 Anxiety disorder, unspecified; I47.19 Other supraventricular tachycardia

== ENCOUNTER → 2025-01-17 13:13 | Outpatient (BNVA) | payer MEDICARE, SELFPAY | PROVIDERS: PCP Internal Medicine; Visit Provider Internal Medicine | DX: Z13.89 Encounter for screening for other disorder (principal) | CPT/HCPCS: 99212 ==

== ENCOUNTER 2025-01-17 14:12 | Outpatient (REF) | payer MEDICARE, SELFPAY ==
--- OUTSIDE RECORDS SUMMARY | 2025-01-17 16:35 | XMS_ITS | Clinical Summary ---
Author Organization [facility] Address [address] [place] [address] Care Team Providers Care Soa Integration Architect Name Role Phone Diya Neumann MD Primary Care Provider [phone] Immunizations Name Administration Dates Next Due Moderna SARS-CoV-2 COVID-19, mRNA, LNP-S, preservative free 12/07/2020 Surgical History Surgery Date Site/Laterality Comments TONSILLECTOMY 1950 PROCEDURE: HISTORICAL TONSILLECTOMY; COMMENT: pinky mass COLONOSCOPY 12/2011 PROCEDURE: [place] COLONOSCOPY STOMA DX INCLUDING COLLJ SPEC SPX; COMMENT: Normal OTHER SURGICAL HISTORY 12/2010 PROCEDURE: STRESS ECHO NS; COMMENT: Normal OTHER SURGICAL HISTORY 10/30/2021 PROCEDURE: HISTORY OTHER; COMMENT: Heart Ablation TURP / TRANSURETHRAL INCISIO N / DRAINAGE PROSTATE 10/06/2017 PROCEDURE: HISTORICAL TURP CATARACT EXTRACTION 2017 Bilateral PROCEDURE: HISTORICAL CATARACT REMOVAL Medical History Medical History Date Comments Anxiety DX:Anxiety; COMM ENT: Sertraline 100 Meniscus tear DX:Meniscus tear ; COMMENT: right knee Concussion DX:Concussion; C OMMENT: when he 15 or 16, cerebral Arm fracture DX:Arm fracture 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 Spencer on 12/25/2011 colonoscopy--scanned into EMR on 07/13/2013 BPH (benign prostatic hyperplasia) DX:BPH (benign prostatic hyperplasia) Generalized anxiety disorder 02/13/2016 DX: Generalized anxiety disorder History of actinic keratoses DX: History of actinic keratoses Lyme disease DX:Lyme disease Class 1 obesity DX:Class 1 obesi ty Family History Medical History Relation Name Comments COPD Brother 1 Prostate cancer Brother 2 Pancreatic cancer Father Pancreatic cancer Father's side Uncle Emphysema Maternal Grandfather Other: cancer of unknown primary Maternal Grandmother Kidney cancer Mother Breast cancer Sister 1 Relation Name Status Comments Brother 1 Alive polio with stab le residual problems, prostate cancer Brother 2 Daughter Alive healthy Father (Age 69) pancreatic cancer and back pain Father's side Maternal Grandfather Maternal Grandmother [place] Mother knee replacemen t, htn, pain meds, renal carcinoma, barretts esophagus Paternal Grandfather Paternal Grandmother Sister 1 Sister 2 Alive 2, 1 breast can cer and 1 thyroid problem Son Alive healthy Social History Tobacco Use Types Packs/Day Years Used Date Smoking Tobacco: Never Smokeless Tobacco: Never Alcohol Use Standard Drinks/Week Comments Yes 0 (1 standard drink = 0.6 oz pur e alcohol) Sex and Gender Information Value Date Recorded Sex Assigned at Not on file Legal Sex Male 1:59 AM EST Gender Identity Not on file Sexual Orientation Not on file Obstetrics History Last Filed Vital Signs Vital Sign Reading Time Taken Comments Blood Pressure 112/70 11/19/2023 11:19 AM EST Pulse 70 11/19/2023 11:19 AM EST Temperature - - Respiratory Rate - - Oxygen Saturation - - Inhaled Oxygen Concentration - - Weight 95.3 kg (210 lb) 11/19/2023 11:19 AM EST Height 175.3 cm (5' 9 ) 11/19/2023 11:19 AM EST Body Mass Index 31.01 11/19/2023 11:19 AM EST Plan of Treatment Upcoming Encounters Date Type Department Care Team (Late st Contact Info) Description 02/02/2025 10:40 AM EDT Office Visit [facility] [address] [facility] [address] [place] [phone] Elsy Mai NP [address] [place] [address] [place] [phone] Health Maintenance Due Date Last Done Comments Cholesterol Screening (Lipid Panel) 09/08/2022 Depression Screening 09/08/2022 Falls Risk Assessment 09/08/2022 Hepatitis C Screening 09/08/2022 Social Influencers of Health Screening 09/08/2022 RSV Immunization Adult Patients (1 - 1-dose 75+ series) 2023 COVID-19 Vaccine (2 - season) 2024 12/07/2020 Influenza Vaccine (Season Ended) 2025 11/02/2020, 07/21/2018, 08/05/2017, Additional history exists DTaP,Tdap,and Td Vaccines (3 - Td or Tdap) 08/16/2029 08/16/2019, 04/02/2012 Pneumococcal Vaccine: 50+ Years Completed 07/10/2015, 11/18/2013 Zoster Vaccines Completed 09/20/2019, 04/26/2019 HIB Vaccines Aged Out No longer eligi ble based on patient's age to complete this topic HPV Vaccines Aged Out No longer eligi ble based on patient's age to complete this topic Hepatitis A Vaccines Aged Out No long er eligible based on patient's age to complete this topic Hepatitis B Vaccines Aged Out No long er eligible based on patient's age to complete this topic IPV Vaccines Aged Out No longer eligi ble based on patient's age to complete this topic MMR Vaccines Aged Out No longer eligi ble based on patient's age to complete this topic Meningococcal ACWY Vaccine Aged Out N o longer eligible based on patient's age to complete this topic Meningococcal B Vaccine Aged Out No l onger eligible based on patient's age to complete this topic RSV Immunization Patients Under 20 months Aged Out No longer eligible based on patient's age to complete this topic Varicella Vaccines Aged Out No longer eligible based on patient's age to complete this topic Insurance MEDICARE Care Teams Soa Integration Architect Relationship Specialty Start Date End Date Diya Neumann MD PCP - General Internal Medicine 08/08/15
[2025-01-17 17:31] LABS: MANUAL DIFF FLAG NO
[2025-01-17 17:33] LABS: Basophils Percent Auto 0.3 % (0-2); Eosinophils Absolute Auto 0.1 X10*3/uL (0.0-0.4); Eosinophils Percent Auto 2.1 % (0-4); Hematocrit 39.5 % (42.0-52.0); Hemoglobin 13.5 g/dl (14.0-18.0); Imm Gran Abs Auto 0.02 X10*3/uL (0.00-0.03); Imm Gran Pct Auto 0.3 % (0.0-0.4); Lymphocytes Percent Auto 16.8 % (20-40); Mean Corpuscular HGB Conc 34.2 g/dl (31.0-36.0); Mean Corpuscular Hemoglobin 32.4 pg (27.0-33.0); Mean Corpuscular Volume 94.7 fL (80.0-98.0); Mean Platelet Volume 10.6 fL (9.4-12.4); Monocytes Absolute Auto 0.6 X10*3/uL (0.1-1.2); Monocytes Percent Auto 10.2 % (2-11); Neutrophils Absolute Auto 4.1 x10*3/uL (2.0-8.3); Neutrophils Percent Auto 70.3 % (45-73); Platelet Count 147 X10*3/uL (160-400); Red Blood Count 4.17 X10*6/uL (4.60-5.80); Red Cell Distribution Width 11.9 % (11.0-16.0); White Blood Count 5.8 X10*3/uL (4.8-10.8)
[2025-01-17 17:55] LABS: Alanine Aminotransferase 28 U/L (0-40); Alkaline Phosphatase 54 U/L (39-117); Anion Gap 9 (12-20); Aspartate Amino Transferase 25 U/L (5-37); Bilirubin Total 0.6 mg/dL (0.0-1.0); Blood Urea Nitrogen 16 mg/dL (9-16); Carbon Dioxide 28 mmol/L (22-29); Chloride 106 mmol/L (96-108); Estimated Glomerular Filt Rate > 60; Glucose Random 100 mg/dL (60-115); Potassium 3.9 mmol/L (3.3-5.1); Sodium 139 mmol/L (135-145); Total Protein 6.6 g/dL (6.5-8.0)
== END 2025-01-17 14:13 | disposition home or self-care (01) ==
LOC: HO.WFDLDS 14:12
PROVIDERS: Visit Provider Internal Medicine
DX: R55 Syncope and collapse (principal); E87.1 Hypo-osmolality and hyponatremia; F41.9 Anxiety disorder, unspecified; I47.19 Other supraventricular tachycardia; D69.6 Thrombocytopenia, unspecified; N40.0 Benign prostatic hyperplasia without lower urinary tract symptoms; G47.33 Obstructive sleep apnea (adult) (pediatric); Z96.653 Presence of artificial knee joint, bilateral
CPT/HCPCS: 36415; 80053; 85025; 99212

== ENCOUNTER 2025-06-10 11:10 | Outpatient (REF) | payer MEDICARE, SELFPAY ==
--- OUTSIDE RECORDS SUMMARY | 2025-06-10 12:17 | XMS_ITS | Encounter Summary ---
Author Organization [facility] Address [address] [place] [address] Phone Care Team Providers Care Teacher Specialist Name Role Phone Diya Gonzalez MD Unavailable [phone] Diay Gonzalez MD Primary Care Provider [phone] Aliya Mckeon MD Unavailable [phone] Iggy Abraham MD Unavailable [phone] Froylan Rosa MD Unavailable Encounter Details Date Type Department Care Team (Late st Contact Info) Description 05/12/2023 Procedure Pass [facility] PERIOPERATIVE DEPT [address] [place] [address] Social History Tobacco Use Types Packs/Day Years Used Date Smoking Tobacco: Never Smokeless Tobacco: Never Alcohol Use Standard Drinks/Week Comments Yes 4 (1 standard drink = 0.6 oz pur e alcohol) Education Answer Date Recorded Are you interested in more education? Not on josie e 01/31/2023 Are you concerned about learning? Not on file 01/31/2023 No 01/31/2023 No 01/31/2023 Digital Access Answer Date Recorded No 02/27/2023 No 02/27/2023 Reliable internet access at home? Not on file 02/27/2023 Device with a working camera? Not on file Intimate Partner Violence Answer Date R ecorded Are you denied basic needs s uch as food, clothing, or medical care? No 05/12/2023 In the past 12 months have y ou been in a relationship with a person who hurts, threatens, or tries to control you? No 05/12/2023 Are you denied basic needs s uch as food, clothing, or medical care? No 05/12/2023 In the past 12 months have y ou been in a relationship with a person who hurts, threatens, or tries to control you? No 05/12/2023 Sex and Gender Information Value Date Recorded Sex Assigned at Male 04/25/2020 5:25 AM EDT Legal Sex Male 10:22 AM EST Gender Identity Male 08/29/2019 9:30 PM EST Sexual Orientation Straight 04/25/2020 5: 26 AM EDT documented as of this encounter Functional Status * Calculated C-SSRS Risk Score (Lifetime/Recent) Answer Date of Assessment Author No Risk Indicated 05/12/2023 6:40 PM EDT Sana Salinas RN * [place] Suicide Severity Rating Scale (Screener/Recent Self-Report) Question Answer Date of Assessment Author 1. Wish to be (Past 1 Month) No 05/12/2023 6:40 PM EDT Nedra Delgado RN 2. Non-Specific Active Suici anselmo Thoughts (Past 1 Month) No 05/12/2023 6:40 PM EDT Kathy Delgado RN 6. Suicidal Behavior (Lifetime) No 6:40 PM EDT Sana Delgado RN documented as of this encounter Plan of Treatment Not on file documented as of this encounter Visit Diagnoses Not on filedocumented in this encounter Additional Health Concerns Assessment Noted Time PHQ-2 Depression Total Score: 0 11/11/19 18 1:21 PM EST documented as of this encounter Care Teams Teacher Specialist Relationship Specialty Start Date End Date Diya Gonzalez MD PCP - General Internal Medicine 10/21/17 Diya Gonzalez MD Referring Physician Internal Medicine 08/07/17 Aliya Mckeon MD [facility] [place] [address] [email or web address] Referring Physician Gastroenterology 11/14/17 Iggy Abraham MD [address] [place] [address] [email or web address] Medical [email or web address] 01/20/18 Froylan Rosa MD [address] [place] [address] Cardiology 02/27/23 documented as of this encounter Additional Source Comments The information contained in this document represents components of the legal health record. It is not the complete legal health record.[facility]
--- OUTSIDE RECORDS SUMMARY | 2025-06-10 12:17 | XMS_ITS | Encounter Summary ---
Author Organization [facility] Address [address] [place] [address] Phone Care Team Providers Care Photographic Restorer Name Role Phone Diya Gonzalez MD Unavailable [phone] Diya Gonzalez MD Primary Care Provider [phone] Aliya Mckeon MD Unavailable [phone] Iggy Abraham MD Unavailable [phone] Froylan Rosa MD Unavailable [phone] Encounter Details Date Type Department Care Team (Late st Contact Info) Description 04/28/2023 Transcribe Orders [facility] [address] [place] [address] Don Chan [email or web address] Social History Tobacco Use Types Packs/Day Years [...] with a working camera? Not on file Sex and Gender Information Value Date Recorded Sex Assigned at Male 04/25/2020 5:25 AM EDT Legal Sex Male 10:22 AM EST Gender Identity Male 08/29/2019 9:30 PM EST Sexual Orientation Straight 04/25/2020 5: 26 AM EDT documented as of this encounter Plan of Treatment Not on file documented as of this encounter Visit Diagnoses Not on filedocumented in this encounter Additional Health Concerns Assessment Noted Time PHQ-2 Depression Total Score: 0 11/11/19 18 1:21 PM EST documented as of this encounter Care Teams Photographic Restorer Relationship Specialty Start Date End Date Diya Gonzalez MD PCP - General Internal Medicine 10/21/17 Diya Gonzalez MD Referring Physician Internal Medicine 08/07/17 Aliya Mckeon MD [address] [place] [address] [email or web address] Referring Physician Gastroenterology 11/14/17 Iggy Abraham MD [address] [place] [address] [email or web address] 01/20/18 Froylan Rosa MD [address] [place] [address] Cardiology 02/27/23 documented as of this encounter Additional Source Comments The information contained in this document represents components of the legal health record. It is not the complete legal health record.[facility]
--- OUTSIDE RECORDS SUMMARY | 2025-06-10 12:17 | XMS_ITS | Encounter Summary ---
Author Organization [facility] Address [address] [place] [address] Phone Care Team Providers Care Curriculum Assistant Principal Name Role Phone Elsy Gonzalez OD Primary Care Provider + Diya Gonzalez MD Primary Care Provider Diya Gonzalez MD Unavailable [phone] Diya Gonzalez MD Primary Care Provider Aliya Mckeon MD Unavailable [phone] Iggy Abraham MD Unavailable [phone] Froylan Rosa MD Unavailable Encounter Details Date Type Department Care Team (Late st Contact Info) Description 09/27/2015 Transcribe Orders [facility] Endocrine, Diabetes, and Hypertension [address] [facility] [address] [place] [address] Celi Alaniz [address] [place] [address] [email or web address] Nontoxic multinodular goiter (Primary Dx) Social History Tobacco Use Types Packs/Day Years Used Date Smoking Tobacco: Never Sex and Gender Information Value Date Recorded Sex Assigned at Male 04/25/2020 5:25 AM EDT Legal Sex Male 10:22 AM EST Gender Identity Male 08/29/2019 9:30 PM EST Sexual Orientation Straight 04/25/2020 5: 26 AM EDT documented as of this encounter Plan of Treatment Not on file documented as of this encounter Visit Diagnoses Diagnosis Nontoxic multinodular goiter- Primary documented in this encounter Care Teams Curriculum Assistant Principal Relationship Specialty Start Date End Date Carlos Elsy Saavedra OD [address] [place] [address] PCP - General Optometry 08/23/15 01/28/17 Diya Gonzalez MD [address] [place] [address] PCP - General Internal Medicine 01/29/17 10/20/17 Diya Gonzalez MD [address] [place] [address] PCP - General Internal Medicine 10/21/17 Diya Gonzalez MD [address] [place] [address] Referring Physician Internal Medicine 08/07/17 Aliya Mckeon MD [address] [place] [address] [place], [facility] [address] [place] [address] [email or web address] Referring Physician Gastroenterology 11/14/17 Iggy Abraham MD [address] [place] [address] [email or web address] Medical Oncology 01/20/18 Froylan Rosa MD [address] [place] [address] Cardiology 02/27/23 documented as of this encounter Additional Source Comments The information contained in this document represents components of the legal health record. It is not the complete legal health record.[facility]
--- OUTSIDE RECORDS SUMMARY | 2025-06-10 12:17 | XMS_ITS | Encounter Summary ---
Author Organization [facility] Address [address] [place] [address] Phone Care Team Providers Care Medical Genetics Director Name Role Phone Diya Gonzalez MD Primary Care Provider + [phone] Diya Gonzalez MD Unavailable [phone] Diya Gonzalez MD Primary Care Provider + [phone] Aliya Mckeon MD Unavailable [phone] Iggy Abraham MD Unavailable [phone] Froylan Rosa MD Unavailable Encounter Details Date Type Department Care Team (Late st Contact Info) Description 07/07/2017 Procedure Pass [facility] Periop [address] [place] [address] Social History Tobacco Use Types Packs/Day Years [...] Diagnoses Not on filedocumented in this encounter Care Teams Medical Genetics Director Relationship Specialty Start Date End Date Diya Gonzalez MD PCP - General Internal Medicine 01/29/17 10/20/17 Diya Gonzalez MD PCP - General Internal Medicine 10/21/17 Diya Gonzalez MD Referring Physician Internal Medicine 08/07/17 Aliya Mckeon MD [address] [place] [address] [address] [place] [address] [email or web address] Referring Physician Gastroenterology 11/14/17 Iggy Abraham MD [address] [place] [address] [email or web address] Medical Oncology 01/20/18 Froylan Rosa MD [address] [place] [address] Cardiology 02/27/23 documented as of this encounter Additional Source Comments The information contained in this document represents components of the legal health record. It is not the complete legal health record.[facility]
--- OUTSIDE RECORDS SUMMARY | 2025-06-10 12:17 | XMS_ITS | Encounter Summary ---
Author Organization [facility] Address [address] [place] [address] Phone Care Team Providers Care Datastage Consultant Name Role Phone Elsy Gonzalez OD Primary Care Provider + Diya Gonzalez MD Primary Care Provider [phone] Diya Gonzalez MD Unavailable [phone] Diya Gonzalez MD Primary Care Provider Aliya Mckeon MD Unavailable [phone] Iggy Abraham MD Unavailable [phone] Froylan Rosa MD Unavailable Encounter Details Date Type Department Care Team (Late st Contact Info) Description 08/23/2015 Transcribe Orders [facility] Endocrine, Diabetes, and Hypertension [address] [facility] 2nd [place] [address] Celi Alaniz [address] [facility] [place] [address] [email or web address] Thyroid nodule (Primary Dx) Social History Tobacco Use Types Packs/Day Years Used Date Smoking Tobacco: Never Assessed Sex and Gender Information Value Date Recorded Sex Assigned at Male 04/25/2020 5:25 AM EDT Legal Sex Male 10:22 AM EST Gender Identity Male 08/29/2019 9:30 PM EST Sexual Orientation Straight 04/25/2020 5: 26 AM EDT documented as of this encounter Plan of Treatment Not on file documented as of this encounter Results * US Thyroid Biopsy (09/19/2015 11:52 AM EST) Anatomical Region Laterality Modality Neck Ultrasound Narrative 09/19/2015 12:41 PM EST INDICATION Thyroid mass (246.9) FINDINGS Thyroid gland Size Right lobe: 5.8 x 1.9 x 1.7 cm Left lobe: 4.0 x 1.2 x 1.2 cm Isthmus thickness: 0.5 cm Right lobe Nodule 1 Size: 19 x 12 x 11 mm mid pole solid hypoechoic, minimal internal flow, coarse calcifications This nodule aspirated/biopsied Nodule 2 Size: 22 x 20 x 16 mm lower pole solid coarse calcifications, rim calcification previously biopsied OSH Nodule(s) <5mm single predominantly cystic Left lobe Nodule 1 Size: 7 x 6 x 4 mm lower pole solid Nodule 2 Size: 12 x 9 x 5 mm lower pole coarse calcifications, rim calcification dense shadowing without a definite nodule Lymph nodes Benign appearing Left 14 x 7 x 4 mm IJ chain high lateral ASPIRATION/BIOPSY Ultrasound guidance provided for aspiration/biopsy with Dr. Manuel Rivers IMPRESSION Ultrasound guidance provided for thyroid aspiration/biopsy The attending radiologist was present for the entire procedure. Procedure Note Marichuy Nascimento MD - 09/19/2015 INDICATION Thyroid mass (246.9) FINDINGS Thyroid gland Size Right lobe: 5.8 x 1.9 x 1.7 cm Left lobe: 4.0 x 1.2 x 1.2 cm Isthmus thickness: 0.5 cm Right lobe Nodule 1 Size: 19 x 12 x 11 mm mid pole solid hypoechoic, minimal internal flow, coarse calcifications This nodule aspirated/biopsied Nodule 2 Size: 22 x 20 x 16 mm lower pole solid coarse calcifications, rim calcification previously biopsied OSH Nodule(s) <5mm single predominantly cystic Left lobe Nodule 1 Size: 7 x 6 x 4 mm lower pole solid Nodule 2 Size: 12 x 9 x 5 mm lower pole coarse calcifications, rim calcification dense shadowing without a definite nodule Lymph nodes Benign appearing Left 14 x 7 x 4 mm IJ chain high lateral ASPIRATION/BIOPSY Ultrasound guidance provided for aspiration/biopsy with Dr. Manuel Rivers IMPRESSION Ultrasound guidance provided for thyroid aspiration/biopsy The attending radiologist was present for the entire procedure. us Manuel Rivers MD IMG IR NEURO Final Result documented in this encounter Visit Diagnoses Diagnosis Thyroid nodule- Primary Nontoxic uninodular goiter Thyroid nodule Nontoxic uninodular goiter documented in this encounter Care Teams Datastage Consultant Relationship Specialty Start Date End Date Elsy Gonzalez OD [address] [place] [address] PCP - General Optometry 08/23/15 01/28/17 Diya Gonzalez MD [address] [place] [address] PCP - General Internal Medicine 01/29/17 10/20/17 Diya Gonzalez MD [address] [place] [address] PCP - General Internal Medicine 10/21/17 Diya Gonzalez MD [address] [place] [address] Referring Physician Internal Medicine 08/07/17 Aliya Mckeon MD [address] [place] [address] [address] [place] [place] [address] [email or web address] Referring Physician Gastroenterology 11/14/17 Iggy Abraham MD [address] [place] [address] [email or web address] Medical Oncology 01/20/18 Froylan Rosa MD [address] [place] [address] Cardiology 02/27/23 documented as of this encounter Additional Source Comments The information contained in this document represents components of the legal health record. It is not the complete legal health record.[facility]
--- OUTSIDE RECORDS SUMMARY | 2025-06-10 12:17 | XMS_ITS | Encounter Summary ---
Author Organization [facility] Address [address] [place] [address] Phone Care Team Providers Care Tenant Relations Coordinator Name Role Phone Elsy Gonzalez OD Primary Care Provider + Diya Gonzalez MD Primary Care Provider Diya Gonzalez MD Unavailable [phone] Diya Gonzalez MD Primary Care Provider Aliya Mckeon MD Unavailable [phone] Iggy Abraham MD Unavailable [phone] Froylan Rosa MD Unavailable Encounter Details Date Type Department Care Team (Late st Contact Info) Description 09/10/2016 Ancillary Orders [facility] Endocrine, Diabetes, and Hypertension [address] [facility] 2nd [place] [address] Celi Alaniz [address] [facility] [place] [address] [email or web address] Nontoxic multinodular goiter Social History Tobacco Use Types Packs/Day Years [...] of this encounter Results * US Thyroid Gland (09/10/2016 11:24 AM EST) Anatomical Region Laterality Modality Neck, Head, Chest Ultrasound 09/10/2016 Narrative 09/10/2016 11:44 AM EST TESTS PERFORMED Thyroid/Neck Ultrasound ([id number]) INDICATIONS/REASONS FOR TESTS Thyroid mass FINDINGS Compared to prior scan dated 09/19/2015 Thyroid gland Size Right lobe: 5.1 x 2.5 x 1.7 cm Left lobe: 3.2 x 1.4 x 1.1 cm Isthmus thickness: 0.6 cm Right lobe Nodule 1 Size: 20 x 14 x 11 mm Mid pole Solid, Coarse calcifications, Hypoechoic, Smooth margins, Minimal internal vascularity, Peripheral vascularity No change in size compared to prior scan Previously biopsied Nodule 2 Size: 19 x 16 x 13 mm Lower pole Peripheral vascularity, Solid, Coarse calcifications, Hypoechoic, Smooth margins No change in size compared to prior scan previously biopsied H Nodule(s) 5-9 mm Single Predominantly solid Left lobe Nodule 1 Size: 8 x 7 x 5 mm Lower pole <50% cystic, No calcifications, Isoechoic, Smooth margins No change in size since prior scan Nodule 2 Size: 13 x 9 x 8 mm Lower pole <50% cystic, Coarse calcifications, Rim calcifications, Isoechoic, Smooth margins, Minimal internal vascularity No change in size since to prior scan Lymph nodes No enlarged or abnormal appearing lymph nodes seen IMPRESSION: Bilateral thyroid nodules. Procedure Note Marissa Wright MD - 09/10/2016 TESTS PERFORMED Thyroid/Neck Ultrasound ([id number]) INDICATIONS/REASONS FOR TESTS Thyroid mass FINDINGS Compared to prior scan dated 09/19/2015 Thyroid gland Size Right lobe: 5.1 x 2.5 x 1.7 cm Left lobe: 3.2 x 1.4 x 1.1 cm Isthmus thickness: 0.6 cm Right lobe Nodule 1 Size: 20 x 14 x 11 mm Mid pole Solid, Coarse calcifications, Hypoechoic, Smooth margins, Minimal internal vascularity, Peripheral vascularity No change in size compared to prior scan Previously biopsied Nodule 2 Size: 19 x 16 x 13 mm Lower pole Peripheral vascularity, Solid, Coarse calcifications, Hypoechoic, Smooth margins No change in size compared to prior scan previously biopsied [facility] Nodule(s) 5-9 mm Single Predominantly solid Left lobe Nodule 1 Size: 8 x 7 x 5 mm Lower pole <50% cystic, No calcifications, Isoechoic, Smooth margins No change in size since prior scan Nodule 2 Size: 13 x 9 x 8 mm Lower pole <50% cystic, Coarse calcifications, Rim calcifications, Isoechoic, Smooth margins, Minimal internal vascularity No change in size since to prior scan Lymph nodes No enlarged or abnormal appearing lymph nodes seen IMPRESSION: Bilateral thyroid nodules. us Manuel Rivers MD IMG US THYROID Final Result documented in this encounter Visit Diagnoses Diagnosis Nontoxic multinodular goiter Nontoxic multinodular goiter documented in this encounter Care Teams Tenant Relations Coordinator Relationship Specialty Start Date End Date Carlos Elsy Saavedra OD [address] [place] [address] PCP - General Optometry 08/23/15 01/28/17 Diya Gonzalez MD [address] [place] [address] PCP - General Internal Medicine 01/29/17 10/20/17 Diya Gonzalez MD [address] [place] [address] PCP - General Internal Medicine 10/21/17 Diya Gonzalez MD [address] [place] [address] Referring Physician Internal Medicine 08/07/17 Aliya Mckeon MD [facility] [address], [place] [address] [email or web address] Referring Physician Gastroenterology 11/14/17 Iggy Abraham MD [facility] [place] [address] [email or web address] Medical [email or web address] 01/20/18 Froylan Rosa MD [address] [place] [address] Cardiology 02/27/23 documented as of this encounter Additional Source Comments The information contained in this document represents components of the legal health record. It is not the complete legal health record.[facility]
--- OUTSIDE RECORDS SUMMARY | 2025-06-10 12:18 | XMS_ITS | Encounter Summary ---
Author Organization [facility] Address [address] [place] [address] [place] [address] Phone Care Team Providers Care Roll Line Operator Name Role Phone Diya Gonzalez MD Unavailable Diya Gonzalez MD Primary Care Provider Aliya Mckeon MD Unavailable [phone] Iggy Abraham MD Unavailable [phone] Froylan Rosa MD Unavailable Encounter Details Date Type Department Care Team (Late st Contact Info) Description 09/26/2022 Transcribe Orders [facility] SPECIMEN [address] [place] [address] Sandra Duong, [employer]IPMENT TENDER [address] [facility] [address] [place] [address] [email or web address] Social History Tobacco Use Types Packs/Day Years Used Date Smoking Tobacco: Never Smokeless Tobacco: Never Alcohol Use Standard Drinks/Week Comments Yes 3 (1 standard drink = 0.6 oz pur [...] documented as of this encounter Care Teams Roll Line Operator Relationship Specialty Start Date End Date Diya Gonzalez MD PCP - General Internal Medicine 10/21/17 Diya Gonzalez MD Referring Physician Internal Medicine 08/07/17 Aliya Mckeon MD [address] [place] [address] [email or web address] Referring Physician Gastroenterology 11/14/17 Iggy Abraham MD [address] [place] [address] [email or web address] Medical Oncology 01/20/18 Froylan Rosa MD [address] [place] [address] Cardiology 02/27/23 documented as of this encounter Additional Source Comments The information contained in this document represents components of the legal health record. It is not the complete legal health record.[facility]
--- OUTSIDE RECORDS SUMMARY | 2025-06-10 12:18 | XMS_ITS | Clinical Summary ---
Author Organization [address] [place] [address] Address [address] [place] [address] Phone Care Team Providers Care Pump Servicer Helper Name Role Phone Diya Neumann MD Primary Care Provider [phone] Allergies Active Allergy Reactions Criticality Noted Date Comments Amoxicillin Hives,Rash Low 03/04/2013 Medications finasteride (PROSCAR) 5 mg tablet Take 1 tablet (5 mg total) by mouth 1 (one) time each day. 12/03/2024 Active sertraline (ZOLOFT) 50 mg tablet Take 1 tablet (50 mg total) by mouth daily. 12/06/2020 Active tamsulosin (FLOMAX) 0.4 mg 24 hr capsule Take 1 capsule (0.4 mg total) by mouth 1 (one) time each day. 04/17/2022 Active atorvastatin (LIPITOR) 20 mg tablet Take 1 tablet (20 mg total) by mouth daily. Active dilTIAZem CD (CARDIZEM CD) 120 mg 24 hr capsule Take 1 capsule (120 mg total) by mouth 1 (one) time each day. 90 capsule 3 04/19/2025 Active Active Problems Problem Noted Date Diagnosed Date Vasovagal syncope 04/19/2025 Assessment & Plan (04/19/2025 2:44 PM EDT): This 74-year-old gentleman has multiple potential etiologies for syncope. I am reassured by the normal 30-day monitor showing no higher degree block or pauses. He does have some atrial runs but no high atrial rates that would likely trigger syncope. I suspect these are more likely to be due to orthostatic etiology then arrhythmic. I will decrease his diltiazem from 180 mg to 120 mg daily. We talked about reinserting implantable loop recorder but given her 30-day monitor was still benign I would like to follow him clinically and if he has another syncopal spell we will order. Pacemaker given his underlying conduction disease. He will maintain good hydration pproceed to implanting an ILR and exercise lightly in the future and let me know if he has any further episodes. RBBB 02/02/2025 Overview (02/02/2025): Last Assessment & Plan: Chronic right bundle branch block with no evidence of high degree block. No need for treatment. This gentleman is having upcoming knee surgery and he should be at acceptable risk for proceeding without additional testing. He has no evidence of left ventricular dysfunction, congestive heart failure, active coronary disease. Should he have any postoperative atrial arrhythmias he should be suitable to control this with diltiazem. If he has an episode lasting longer than 1 hour I would anticoagulate in the short-term and I assume he may be treated with some antiplatelet therapy or anticoagulants for his knee surgery in any case. Please proceed as indicated. Paroxysmal supraventricular tachycardia ([facility] V24) 02/07/2022 Overview (02/02/2025): Supraventricular tachycardia. 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 This was ablated successfully. Implantable loop recorder shows a regular narrow complex tachycardia that generally last for less than 1 to 2 minutes and is mildly symptomatic. I suspect these are paroxysmal atrial tachycardia. He is not anticoagulated given none of these episodes have lasted beyond 6 minutes. Last Assessment & Plan: This gentleman continues to have some short episodes that are likely atrial runs. I would continue his diltiazem. There are no symptoms of antiarrhythmic drug medicines or not indicated. These episodes generally are not long enough to indicate need for anticoagulation as a minimum of 6 minutes and up to an hour would be required to require anticoagulation. Continue to monitor with his implantable loop recorder. Assessment & Plan (04/19/2025 2:43 PM EDT): Successful treatment of SVT. No clear recurrence. Likely has atrial runs but no clear atrial fibrillation. Continue diltiazem but will reduce the dose to 120 mg daily due to suspected orthostatic presyncope. Encounters Date Type Department Care Team Description 04/19/2025 1:30 PM EDT Office Visit [facility] [address] [place] [id number] Froylan Rosa MD Syncope, unspecified syncope type (Primary Dx); Paroxysmal supraventricular tachycardia (CMS/HCC V24); Vasovagal syncope from Last 3 Months Immunizations Name Administration Dates Next Due Moderna SARS-CoV-2 COVID-19, mRNA, LNP-S, preservative free 12/07/2020 Surgical History Surgery Date Site/Laterality Comments TONSILLECTOMY 1952 PROCEDURE: HISTORICAL TONSILLECTOMY; COMMENT: pinkyarline flores COLONOSCOPY 12/2011 PROCEDURE: NE COLONOSCOPY STOMA DX INCLUDING COLLJ SPEC SPX; [...] pain Father's side Maternal Grandfather Maternal Grandmother Mother knee replacemen t, htn, pain meds, renal carcinoma, barretts esophagus Paternal Grandfather [place] Paternal Grandmother Sister 1 Sister 2 Alive [...] Sign Reading Time Taken Comments Blood Pressure 114/64 02/22/2025 8:42 AM EDT Pulse 65 04/19/2025 1:52 PM EDT Temperature - - Respiratory Rate - - Oxygen Saturation 96% 04/19/2025 1:52 PM EDT Inhaled Oxygen Concentration - - Weight 89.4 kg (197 lb) 04/19/2025 1:52 PM EDT Height 175.3 cm (5' 9 ) 04/19/2025 1:52 PM EDT Body Mass Index 29.09 04/19/2025 1:52 PM EDT Plan of Treatment Health Maintenance Due Date Last Done Comments Cholesterol Screening (Lipid Panel) 09/08/2022 Falls Risk Assessment 09/08/2022 Hepatitis C Screening 09/08/2022 Medicare Annual Wellness Visit 09/08/2022 Social Influencers of Health Screening 09/08/2022 Depression Screening 10/06/2024 COVID-19 Vaccine (7 - Moderna risk season) 2025 11/13/2024, 10/31/2023, 08/02/2022, Additional history exists Influenza Vaccine (#1) 2025 , 07/02/2023, 07/12/2022, Additional history exists DTaP,Tdap,and Td Vaccines (4 - Td or Tdap) 11/13/2034 11/13/2024, 08/16/2019, 04/02/2012 Pneumococcal Vaccine: 50+ Years Completed 07/10/2015, 11/18/2013 Zoster Vaccines Completed 09/20/2019, 04/26/2019 RSV Immunization Adult Patients Completed 10/31/2023 HIB Vaccines Aged Out No longer eligi [...] on patient's age to complete this topic Procedures Procedure Name Priority Date/Time Associated Diagnosis Comments ECG 12-LEAD Routine 04/19/2025 2:45 PM EDT Syncope, unspecified syncope type from Last 3 Months Results * ECG 12 lead (04/19/2025 2:45 PM EDT) Ventricular Rate ECG 65 BPM GEMUSE Atrial Rate 65 BPM GEMUSE P-R Interval 212 ms GEMUSE QRS Duration 154 ms GEMUSE Q-T Interval 416 ms GEMUSE QTc 432 ms GEMUSE P Wave Haskell 57 degrees GEMUSE T Haskell 46 degrees GEMUSE ECG Interpretation Sinus rhythm with 1st degree A-V block Right bundle branch block Abnormal ECG When compared with ECG of 02-FEB-2025 10:46, Premature ventricular complexes are no longer Present Confirmed by Jeniffer ROSA JOHN ([id number]) on 04/21/2025 4:30:56 PM GEMUSE 04/19/2025 2:01 PM EDT 04/21/2025 4:30 PM EDT us Froylan Rosa MD ECG ORDERABLES Edited Result - Final GEMUSE from Last 3 Months Insurance MEDICARE [facility] Care Teams Pump Servicer Helper Relationship Specialty Start Date End Date Diya Neumann MD [address] [place] [id number] PCP - General Internal Medicine 02/02/25
--- OUTSIDE RECORDS SUMMARY | 2025-06-10 12:18 | XMS_ITS | Encounter Summary ---
Author Organization [facility] Address [address] [place] [address] [place] [address] Phone Care Team Providers Care Shift Production Associate Name Role Phone Diya Gonzalez MD Unavailable [phone] Diya Gonzalez MD Primary Care Provider [phone] Aliya Mckeon MD Unavailable [phone] Iggy Abraham MD Unavailable [phone] Froylan Rosa MD Unavailable [phone] Encounter Details Date Type Department Care Team (Late st Contact Info) Description 03/30/2018 Procedure Pass [facility] Endoscopy Department [address] [place] [id number] Social History Tobacco Use Types Packs/Day Years [...] documented as of this encounter Care Teams Shift Production Associate Relationship Specialty Start Date End Date Diya Gonzalez MD PCP - General Internal Medicine 10/21/17 Diya Gonzalez MD Referring Physician Internal Medicine 08/07/17 Aliya Mckeon MD [facility] [address] [place] [address] [email or web address] Referring Physician Gastroenterology 11/14/17 Iggy Abraham MD [address] [place] [address] [email or web address] Medical Oncology 01/20/18 Froylan Rosa MD [address] [place] [address] Cardiology 02/27/23 documented as of this encounter Additional Source Comments The information contained in this document represents components of the legal health record. It is not the complete legal health record.[facility]
--- OUTSIDE RECORDS SUMMARY | 2025-06-10 12:18 | XMS_ITS | Clinical Summary ---
Author Organization [facility] Address [address] [place] [address] Phone Care Team Providers Care Tub Mender Name Role Phone Diya Gonzalez MD Unavailable Diya Gnozalez MD Primary Care Provider Aliya Mckeon MD Unavailable [phone] Iggy Abraham MD Unavailable [phone] Froylan Rosa MD Unavailable Allergies Active Allergy Reactions Criticality Noted Date Comments Amoxicillin Rash Low 09/19/2015 Medications sertraline (ZOLOFT) 50 MG tablet Take 50 mg by mouth daily. Active atorvastatin (LIPITOR) 20 MG tabletIndications:h ypercholesterolemia Take 20 mg by mouth nightly at bedtime. Indications: high cholesterol Active cholecalciferol, vitamin D3, 25 mcg (1,000 unit) chewable tablet Take 10 mcg by mouth. Active multivit with minerals/lutein (MULTIVITAMIN 50 PLUS ORAL) Daily, 0 Refills, Maintenance, 11/27/21 10:55:00 EST, Partial fill upon patient request if the prescription is for a schedule II opioid drug. Active tamsulosin (FLOMAX) 0.4 mg Cap 0.4 mg 2 (two) times a day. Active gabapentin (NEURONTIN) 100 MG capsule Take 100 mg by mouth 2 (two) times a day. Active TIADYLT ER 180 mg 24 hr capsuleIndications: paroxysmal supraventricular tachycardia Take 180 mg by mouth daily. Indications: paroxysmal supraventricular tachycardia Active clindamycin (CLEOCIN) 300 MG capsule Take 2 capsules (600 mg total) by mouth once as needed. Take 2 capsules one hour prior to any dental work/cleanings. 6 capsule 1 023 Active acetaminophen (TYLENOL) 325 mg tablet Take 3 tablets (975 mg total) by mouth every 8 (eight) hours. May wean to an as needed basis if pain well controlled. Do not take more than 3000mg acetaminophen per day (including in other prescribed or ulpq-cff-uemjniv medications). 0 Active aspirin 81 mg chewable tablet Take 1 tablet (81 mg total) by mouth 2 (two) times a day. Take with food for 4 weeks for DVT prevention. 58 tablet Active ondansetron (ZOFRAN-ODT) 4 MG disintegrating tablet Take 1 tablet (4 mg total) by mouth every 6 (six) hours as needed. 20 tablet 023 Active Active Problems Problem Noted Date Diagnosed Date S/P total knee arthroplasty, left 05/12/2023 Arthritis of knee, right 10/09/2022 Benign prostatic hyperplasia (BPH) with post-voi d dribbling 07/07/2017 Assessment & Plan (07/08/2017 6:03 AM EDT): - void trial then home Enlarged prostate with urinary obstruction 02/20 Hyperlipidemia 09/10/2016 Nontoxic multinodular goiter 09/19/2015 Immunizations Immunization Administration Dates Next Due COVID-19 (Pre-07/28) Moderna Vaccine, mRNA, PF 0 12/07/2020 Family History Medical History Relation Comments Cancer Brother 1 Prostate cancer Prostate cancer Brother 1 Cancer Father Pancreatic cance r Pancreatic cancer Father Cancer Mother Kidney cancer Infl. arthritis Mother Kidney cancer Mother Pancreatic cancer Paternal Uncle Breast cancer Sister Cancer Sister Breast cancer Relation Status Comments Brother 1 Alive Brother 2 Alive Father Mother Alive Paternal Uncle Sister Alive Social History Tobacco Use Types Packs/Day Years Used Date Smoking Tobacco: Never Smokeless Tobacco: Never Tobacco Cessation:Counseling Given: Not Answered Alcohol Use Standard Drinks/Week Comments Yes 4 [...] Orientation Straight 04/25/2020 5: 26 AM EDT Last Filed Vital Signs Vital Sign Reading Time Taken Comments Blood Pressure 129/75 05/13/2023 7:41 AM EDT Pulse 91 05/13/2023 7:41 AM EDT Temperature 36.9 C (98.4 F) 05/13/2023 7:41 AM EDT Respiratory Rate 17 05/13/2023 7:41 AM EDT Oxygen Saturation 94% 05/13/2023 7:41 AM EDT Inhaled Oxygen Concentration - - Weight 95.8 kg (211 lb 3.2 oz) 05/12/2023 6:30 P M EDT Height 175.3 cm (5' 9 ) 05/12/2023 6:30 PM EDT Body Mass Index 31.19 05/12/2023 6:30 PM EDT Plan of Treatment Health Maintenance Due Date Last Done Comments LIPID PANEL 1948 HEPATITIS C SCREENING 1966 DEPRESSION SCREENING 11/11/2018 11/11/2017 RSV VACCINE (1 - 1-dose 75+ series) 2023 COVID-19 VACCINE ( season) 2024 08/02/2022, 08/08/2021, 01/04/2021, Additional history exists INFLUENZA VACCINE (#1) 2025 , 07/14/2021, 11/02/2020, Additional history exists Adult Td,Tdap Booster 08/16/2029 08/16/2019, 012 PNEUMOCOCCAL VACCINES (50+ years) Completed 07/10/2015, 11/18/2013 ZOSTER VACCINES Completed 09/20/2019, 04/26/2019 SMOKING STATUS SCREENING (Once After 26 Yrs) Completed 04/28/2023 HEPATITIS A VACCINES Aged Out No long er eligible based on patient's age to complete this topic HIB VACCINES Aged Out No longer eligi ble based on patient's age to complete this topic MENINGOCOCCAL VACCINES (ACWY) Aged Out No longer eligible based on patient's age to complete this topic MENINGOCOCCAL VACCINES (B) Aged Out N o longer eligible based on patient's age to complete this topic Medical Devices Implanted Type Area Foundry Worker General Device Identifier Shelf Expiration Date Model / Serial / Lot Knee Implant Component Size 10 Femoral Persona [place] Cement Cruciate Retaining Standard Left - [id number] Implanted:Qty: 1 on 05/12/2023 by Eduardo Gonzalez MD at [facility] Left: Knee AMBROCIO BIOMET [id number] 05/05/2032 [id number] / / [id number] Description:The implant type , laterality (when applicable), size, and expiration date have been visually and verbally confirmed by the Surgeon, Circulating RN and Scrub Personnel. Intraoccular Lenses Loop Recorder Description:medtronic - reve al ILNQ [id number] implanted 06/30/2020 Cement Bone 1x40gm [place] R High Viscosity - [id number] Implanted:Qty: 2 on 10/09/2022 by Eduardo Gonzalez MD at [facility] Right: Knee Ubersnap [id number] 03/05/2026 [id number] / / [id number] Description:The implant type , laterality (when applicable), size, and expiration date have been visually and verbally confirmed by the Surgeon, Circulating RN and Scrub Personnel. Knee Implant Component Size 10 Femoral Persona [place] Cement Cruciate Retaining Standard Right - [id number] Implanted:Qty: 1 on 10/09/2022 by Eduardo Gonzalez MD at [facility] Right: Knee AMBROCIO BIOMET [id number] 10/31/2031 [id number] / / [id number] Description:The implant type , laterality (when applicable), size, and expiration date have been visually and verbally confirmed by the Surgeon, Circulating RN and Scrub Personnel. Knee Implant 5.0deg Component Tibial Persona Titanium Stemmed Cemented Rt Size G - [id number] Implanted:Qty: 1 on 10/09/2022 by Eduardo Gonzalez MD at [facility] Right: Knee AMBROCIO BIOMET [id number] 01/22/2032 [id number] / / [id number] Description:The implant type , laterality (when applicable), size, and expiration date have been visually and verbally confirmed by the Surgeon, Circulating RN and Scrub Personnel. Knee Patella 35mm Madelaine Persona All Polyethylene Cemented Conventional - [id number] Implanted:Qty: 1 on 10/09/2022 by Eduardo Gonzalez MD at [facility] Right: Knee AMBROCIO BIOMET [id number] 08/04/2027 [id number] / / [id number] Description:The implant type , laterality (when applicable), size, and expiration date have been visually and verbally confirmed by the Surgeon, Circulating RN and Scrub Personnel. Knee Implant 12mm 8 11 Component Articular Surface Persona Polyethylene Vivacite E Cruciate Retaining Fixed Rt Gh - [id number] Implanted:Qty: 1 on 10/09/2022 by Eduardo Gonzalez MD at [facility] Right: Knee AMBROCIO BIOMET [id number] 01/29/2027 [id number] / / [id number] Description:The implant type , laterality (when applicable), size, and expiration date have been visually and verbally confirmed by the Surgeon, Circulating RN and Scrub Personnel. Knee Implant 5deg Component Tibial Persona Titanium Stemmed Cemented Lt Size F - [id number] Implanted:Qty: 1 on 05/12/2023 by Eduardo Gonzalez MD at [facility] Left: Knee AMBROCIO BIOMET [id number] 01/26/2033 [id number] / / [id number] Description:The implant type , laterality (when applicable), size, and expiration date have been visually and verbally confirmed by the Surgeon, Circulating RN and Scrub Personnel. Knee Implant 10mm 8 11 Component Articular Surface Persona Polyethylene Vivacite E Cruciate Retaining Fixed Lt Ef - [id number] Implanted:Qty: 1 on 05/12/2023 by Eduardo Gonzalez MD at [facility] Left: Knee AMBROCIO BIOMET [id number] 02/12/2028 [id number] / / [id number] Description:The implant type , laterality (when applicable), size, and expiration date have been visually and verbally confirmed by the Surgeon, Circulating RN and Scrub Personnel. Knee Patella 35mm Madelaine Persona All Polyethylene Cemented Conventional - [id number] Implanted:Qty: 1 on 05/12/2023 by Eduardo Gonzalez MD at [facility] Left: Knee AMBROCIO BIOMET 02/10/2028 [id number] / / [id number] Description:The implant type , laterality (when applicable), size, and expiration date have been visually and verbally confirmed by the Surgeon, Circulating RN and Scrub Personnel. Cement Bone 40g Palacos R High Viscosity Cs/20ea - [id number] Issue Replaced By Ps# [id number] - [id number] Implanted:Qty: 2 on 05/12/2023 by Eduardo Gonzalez MD at [facility] Left: Knee Ubersnap 10/05/2027 [id number] / / [id number] Mattress Stuffer Component L 30mm Od 14 Knee Persona Extension Tivanium Cemented Tapered - [id number] Implanted:Qty: 1 on 05/12/2023 by Eduardo Gonzalez MD at [facility] Left: Knee AMBROCIO BIOMET [id number] 03/07/2033 [id number] / / [id number] Description:The implant type , laterality (when applicable), size, and expiration date have been visually and verbally confirmed by the Surgeon, Circulating RN and Scrub Personnel. 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 [place] [address] [email or web address] Referring Physician Gastroenterology 11/14/17 Iggy Abraham MD [facility] [place] [address] [email or web address] Medical Oncology 01/20/18 Froylan Rosa MD [address] [place] [address] Cardiology 02/27/23 Additional Source Comments The information contained in this document represents components of the legal health record. It is not the complete legal health record.[facility]
--- OUTSIDE RECORDS SUMMARY | 2025-06-10 12:18 | XMS_ITS | Encounter Summary ---
Author Organization [facility] Address [address] [place] [address] Phone Care Team Providers Care Brine Maker Name Role Phone Diya Gonzalez MD Unavailable Diya Gonzalez MD Primary Care Provider [phone] Aliya Mckeon MD Unavailable [phone] Iggy Abraham MD Unavailable [phone] Froylan Rosa MD Unavailable Encounter Details Date Type Department Care Team (Latest Contact Info) Description 03/14/2019 [facility] [place] [address] [facility], 10th [place] [address] Mckay Shine MD, PhD [address] [place] [address] Joshua [email or web address] [place] Claustrophobia; Situational anxiety Social History Tobacco Use Types Packs/Day Years [...] as of this encounter Visit Diagnoses Diagnosis Claustrophobia Other isolated or specific phobias Situational anxiety documented in this encounter Additional Health Concerns Assessment Noted Time PHQ-2 Depression Total Score: 0 11/11/19 18 1:21 PM EST documented as of this encounter Care Teams Brine Maker Relationship Specialty Start Date End Date Diya Gonzalez MD PCP - General Internal Medicine 10/21/17 Dyia Gonzalez MD Referring Physician Internal Medicine 08/07/17 Aliya Mckeon MD [address] [place] [address] G[facility]. [address] [place] [address] [email or web address] Referring Physician Gastroenterology 11/14/17 Iggy Abraham MD [address] [place] [address] [email or web address] Medical Oncology 01/20/18 Froylan Rosa MD [address] [place] [address] Cardiology 02/27/23 documented as of this encounter Additional Source Comments The information contained in this document represents components of the legal health record. It is not the complete legal health record.[facility]
--- OUTSIDE RECORDS SUMMARY | 2025-06-10 12:18 | XMS_ITS | Encounter Summary ---
Author Organization [facility] Address [address] [place] [address] Phone Care Team Providers Care Inpatient Care Manager Rn Name Role Phone Diya Gonzalez MD Unavailable [phone] Diya Gonzalez MD Primary Care Provider [phone] Aliya Mckeon MD Unavailable [phone] Iggy Abraham MD Unavailable [phone] Froylan Rosa MD Unavailable Encounter Details Date Type Department Care Team (Late st Contact Info) Description 10/09/2022 Procedure Pass [facility] PERIOPERATIVE DEPT [address] [place] [address] Social History Tobacco Use Types Packs/Day Years Used Date Smoking Tobacco: Never Smokeless Tobacco: Never Alcohol Use Standard Drinks/Week Comments Yes 5 (1 standard drink = 0.6 oz pur [...] Date of Assessment Author No Risk Indicated 10/09/2022 8:56 PM EST Shannan Zayas RN * [place] Suicide Severity Rating Scale (Screener/Recent Self-Report) Question Answer Date of Assessment Author 1. Wish to be (Past 1 Month) No 023 8:56 PM Pollo Rodas RN 2. Non-Specific Active Suici anselmo Thoughts (Past 1 Month) No 10/09/2022 8:56 PM Pollo Rodas RN 6. Suicidal Behavior (Lifetime) No 3 8:56 PM Pollo Rodas RN documented as of this encounter Plan of Treatment Not on file documented as of this encounter Visit Diagnoses Not on filedocumented in this encounter Additional Health Concerns Assessment Noted Time PHQ-2 Depression Total Score: 0 11/11/19 18 1:21 PM EST documented as of this encounter Care Teams Inpatient Care Manager Rn Relationship Specialty Start Date End Date Diya Gonzalez MD PCP - General Internal Medicine 10/21/17 Diya Gonzalez MD Referring Physician Internal Medicine 08/07/17 Aliya Mckeon MD [address] [place] [address] [address] [place] [address] [email or web address] Referring Physician Gastroenterology 11/14/17 Iggy Abraham MD [address] [place] [address] [email or web address] Medical [email or web address] 01/20/18 Froylan Rosa MD [address] [place] [address] Cardiology 02/27/23 documented as of this encounter Additional Source Comments The information contained in this document represents components of the legal health record. It is not the complete legal health record.[facility]
--- OUTSIDE RECORDS SUMMARY | 2025-06-10 12:18 | XMS_ITS | Encounter Summary ---
Author Organization [facility] Address [address] [place] [address] Phone Care Team Providers Care Book Store Associate Name Role Phone Diya Gonzalez MD Unavailable [phone] Diya Gonzalez MD Primary Care Provider [phone] Aliya Mckeon MD Unavailable [phone] Iggy Abraham MD Unavailable [phone] Froylan Rosa MD Unavailable Encounter Details Date Type Department Care Team (Late st Contact Info) Description 11/18/2018 Procedure Pass [facility], [facility] [place], MRI [address] [address] Social History Tobacco Use Types Packs/Day Years [...] documented as of this encounter Care Teams Book Store Associate Relationship Specialty Start Date End Date Diya Gonzalez MD PCP - General Internal Medicine 10/21/17 Diya Gonzalez MD Referring Physician Internal Medicine 08/07/17 Aliya Mckeon MD [address] [place] [address] Génes[address] [place] [address] [place] [address] [email or web address] Referring Physician Gastroenterology 11/14/17 Iggy Abraham MD [address] [place] [address] [email or web address] Medical Oncology 01/20/18 Froylan Rosa MD [address] [place] [address] Cardiology 02/27/23 documented as of this encounter Additional Source Comments The information contained in this document represents components of the legal health record. It is not the complete legal health record.[facility]
--- OUTSIDE RECORDS SUMMARY | 2025-06-10 12:18 | XMS_ITS | Encounter Summary ---
Author Organization [facility] Address [address] [place] [address] [place] [address] Phone Care Team Providers Care Vault Cashier Name Role Phone Diya Gonzalez MD Unavailable [phone] Diya Gonzalez MD Primary Care Provider [phone] Aliya Mckeon MD Unavailable [phone] Iggy Abraham MD Unavailable [phone] Froylan Rosa MD Unavailable Encounter Details Date Type Department Care Team (Late st Contact Info) Description 04/05/2020 Procedure Pass [facility] Endoscopy Department [address] [place] [address] Social History Tobacco Use Types Packs/Day Years [...] documented as of this encounter Care Teams Vault Cashier Relationship Specialty Start Date End Date Diya Gonzalez MD PCP - General Internal Medicine 10/21/17 Diya Gonzalez MD Referring Physician Internal Medicine 08/07/17 Aliya Mckeon MD [facility] [address] [place] [address] [email or web address] Referring Physician Gastroenterology 11/14/17 Iggy Abraham MD [address] [place] [address] [email or web address] Medical [email or web address] 01/20/18 Froylan Rosa MD [address] [place] [address] Cardiology 02/27/23 documented as of this encounter Additional Source Comments The information contained in this document represents components of the legal health record. It is not the complete legal health record.[facility]
--- OUTSIDE RECORDS SUMMARY | 2025-06-10 12:18 | XMS_ITS | Encounter Summary ---
Author Organization [facility] Address [address] [place] [address] [place] [address] Phone Care Team Providers Care Tester Waste Disposal Leakage Name Role Phone Diya Gonzalez MD Unavailable Diya Gonzalez MD Primary Care Provider [phone] Aliya Mckeon MD Unavailable [phone] Iggy Abraham MD Unavailable [phone] Froylan Rosa MD Unavailable [phone] Encounter Details Date Type Department Care Team (Late st Contact Info) Description 08/07/2022 Ancillary Orders [facility] [address] [address] Eduardo Gonzalez MD [address] [address] Bilateral knee pain Social History Tobacco Use Types Packs/Day Years [...] documented as of this encounter Results * XR KNEE 4 OR MORE VIEWS (RIGHT) (08/07/2022 3:50 PM EDT) Anatomical Region Laterality Modality Knee Right Computed Radiogr aphy 08/07/2022 4:07 PM EDT Impressions 08/07/2022 4:10 PM EDT Degenerative changes of both knees and chondrocalcinosis. There is evidence suggestive of extruded mineralized medial menisci bilaterally. Narrative 08/07/2022 4:10 PM EDT XR KNEE 4 OR MORE VIEWS (LEFT), XR KNEE 4 OR MORE VIEWS (RIGHT) COMPARISON: FINDINGS: Left Knee: No acute fracture or dislocation. There is mild medial compartment joint space narrowing and moderate patellofemoral joint space narrowing laterally. There is chondrocalcinosis in both the medial and lateral compartments, including a presumably mineralized extruded medial meniscus. Small tricompartmental osteophytes. Trace effusion. Right Knee: No acute fracture or dislocation. There is moderate medial compartment joint space narrowing and moderate patellofemoral joint space narrowing laterally. There is chondrocalcinosis at both the medial and lateral compartments, including a presumably mineralized extruded medial meniscus. Small tricompartmental osteophytes. Trace effusion. Procedure Note Nitin Padilla MD - 08/07/2022 XR KNEE 4 OR MORE VIEWS (LEFT), XR KNEE 4 OR MORE VIEWS (RIGHT) COMPARISON: FINDINGS: Left Knee: No acute fracture or dislocation. There is mild medialcompartment joint space narrowing and moderate patellofemoral joint spacenarrowing laterally. There is chondrocalcinosis in both the medial andlateral compartments, including a presumably mineralized extruded medialmeniscus. Small tricompartmental osteophytes. Trace effusion. Right Knee: No acute fracture or dislocation. There is moderate medialcompartment joint space narrowing and moderate patellofemoral joint spacenarrowing laterally. There is chondrocalcinosis at both the medial andlateral compartments, including a presumably mineralized extruded medialmeniscus. Small tricompartmental osteophytes. Trace effusion. IMPRESSION: Degenerative changes of both knees and chondrocalcinosis. There isevidence suggestive of extruded mineralized medial menisci bilaterally. Eileen Duarte AGRONOMIST IMG XR LOWER EXTRE MITY Final Result * XR KNEE 4 OR MORE VIEWS (LEFT) (08/07/2022 3:50 PM EDT) Anatomical Region Laterality Modality Knee Left Computed Radiogr aphy 08/07/2022 4:07 PM EDT Impressions 08/07/2022 4:10 PM EDT Degenerative changes of both knees and chondrocalcinosis. There is evidence suggestive of extruded mineralized medial menisci bilaterally. Narrative 08/07/2022 4:10 PM EDT XR KNEE 4 OR MORE VIEWS (LEFT), XR KNEE 4 OR MORE VIEWS (RIGHT) COMPARISON: FINDINGS: Left Knee: No acute fracture or dislocation. There is mild medial compartment joint space narrowing and moderate patellofemoral joint space narrowing laterally. There is chondrocalcinosis in both the medial and lateral compartments, including a presumably mineralized extruded medial meniscus. Small tricompartmental osteophytes. Trace effusion. Right Knee: No acute fracture or dislocation. There is moderate medial compartment joint space narrowing and moderate patellofemoral joint space narrowing laterally. There is chondrocalcinosis at both the medial and lateral compartments, including a presumably mineralized extruded medial meniscus. Small tricompartmental osteophytes. Trace effusion. Procedure Note Nitin Padilla MD - 08/07/2022 XR KNEE 4 OR MORE VIEWS (LEFT), XR KNEE 4 OR MORE VIEWS (RIGHT) COMPARISON: FINDINGS: Left Knee: No acute fracture or dislocation. There is mild medialcompartment joint space narrowing and moderate patellofemoral joint spacenarrowing laterally. There is chondrocalcinosis in both the medial andlateral compartments, including a presumably mineralized extruded medialmeniscus. Small tricompartmental osteophytes. Trace effusion. Right Knee: No acute fracture or dislocation. There is moderate medialcompartment joint space narrowing and moderate patellofemoral joint spacenarrowing laterally. There is chondrocalcinosis at both the medial andlateral compartments, including a presumably mineralized extruded medialmeniscus. Small tricompartmental osteophytes. Trace effusion. IMPRESSION: Degenerative changes of both knees and chondrocalcinosis. There isevidence suggestive of extruded mineralized medial menisci bilaterally. Eileen Duarte AGRONOMIST IMG XR LOWER EXTRE MITY Final Result documented in this encounter Visit Diagnoses Diagnosis Bilateral knee pain Pain in joint, lower leg Bilateral knee pain Pain in joint, lower leg documented in this encounter Additional Health Concerns Assessment Noted Time PHQ-2 Depression Total Score: 0 11/11/19 18 1:21 PM EST documented as of this encounter Care Teams Tester Waste Disposal Leakage Relationship Specialty Start Date End Date Diya Gonzalez MD PCP - General Internal Medicine 10/21/17 Diya Gonzalez MD Referring Physician Internal Medicine 08/07/17 Aliya Mckeon MD [facility] [address] [place] [address] [email or web address] Referring Physician Gastroenterology 11/14/17 Iggy Abraham MD [address] [place] [address] [email or web address] Medical Oncology 01/20/18 Froylan Rosa MD [address] [place] [address] Cardiology 02/27/23 documented as of this encounter Additional Source Comments The information contained in this document represents components of the legal health record. It is not the complete legal health record.[facility]
[2025-06-10 14:22] LABS: MANUAL DIFF FLAG NO
[2025-06-10 14:33] LABS: Hematocrit 40.0 % (42.0-52.0); Hemoglobin 14.0 g/dl (14.0-18.0); Imm Gran Abs Auto 0.02 X10*3/uL (0.00-0.03); Imm Gran Pct Auto 0.4 % (0.0-0.4); Lymphocytes Absolute Auto 1.1 X10*3/uL (1.2-4.9); Mean Corpuscular HGB Conc 35.0 g/dl (31.0-36.0); Mean Corpuscular Hemoglobin 32.9 pg (27.0-33.0); Mean Corpuscular Volume 93.9 fL (80.0-98.0); NRBC Abs Auto 0.000 X10*3/uL (0.0-0.012); NRBC Pct Auto 0.0 /100WBC (0.0-0.2); Platelet Count 147 X10*3/uL (160-400); Red Blood Count 4.26 X10*6/uL (4.60-5.80); White Blood Count 5.3 X10*3/uL (4.8-10.8)
[2025-06-10 14:55] LABS: Alanine Aminotransferase 27 U/L (0-40); Albumin Level 4.3 g/dL (3.5-5.0); Alkaline Phosphatase 53 U/L (39-117); Anion Gap 11 (12-20); Aspartate Amino Transferase 35 U/L (5-37); Blood Urea Nitrogen 17 mg/dL (9-16); Calcium 8.9 mg/dL (8.4-10.2); Carbon Dioxide 31 mmol/L (22-29); Chloride 104 mmol/L (96-108); Cholesterol 150 mg/dL (<200); Estimated Glomerular Filt Rate > 60; HDL Cholesterol 57 mg/dL (>40); Potassium 4.5 mmol/L (3.3-5.1); Sodium 141 mmol/L (135-145); Total Protein 6.6 g/dL (6.5-8.0); Triglycerides 100 mg/dL (<150)
[2025-06-10 15:08] LABS: Prostate Specific Antigen 1.20 ng/mL (<0.05-4.0)
[2025-06-10 15:31] LABS: Hemoglobin A1C 121.4227 umol/L; Total Hemoglobin (HGBA1C) 3617.8086 umol/L
== END 2025-06-10 11:11 | disposition home or self-care (01) ==
LOC: HO.WFDLDS 11:10
PROVIDERS: Visit Provider Internal Medicine
DX: Z12.5 Encounter for screening for malignant neoplasm of prostate (principal); D64.9 Anemia, unspecified; D69.6 Thrombocytopenia, unspecified; F41.9 Anxiety disorder, unspecified; E78.2 Mixed hyperlipidemia; Z13.1 Encounter for screening for diabetes mellitus
CPT/HCPCS: 36415; 80053; 80061; 83036; 84153; 84443; 85025

== ENCOUNTER 2025-06-14 15:04 | Outpatient (AMB) | payer MEDICARE, SELFPAY ==
--- NOTE | 2025-06-14 15:20 | A.OFFPC_ITS ---
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 Was just jotting down notes when he lost consciousness. No prodromal symptoms. No positional changes. Labs with Na 130- ACS r/o. Negative orthostatics. Telemetry normal. Had two additional episodes of presyncope-bending over working outside. He saw cardiology in the interim had reassuring 30 day monitor though no symptoms during. after the monitor had an additional episode -saw cardiology for 2 month follow up diltiazem decreased to 120. No episodes of that since He has fallen 4 or 5 times while walking the dog. He notes that he is distracted, not paying attention and then trips. He notes he is often distracted and forgets what he is meaning to do. For example started going the wrong way while driving to todays appointment. Cardiovascular: Follows with [facility]. Given lack of prior CVA his history of AVNRT status post ablation decided no indication for further anticoagulation or even aspirin. Recent evaluation and testing as noted Chronic pain: Osteoarthritis and history of Lyme . Sees [facility] and dr Waldrop in pain management. Also [facility] -Neck pain-severe DDD. Upcoming visit [facility] neurosurgery. Patient has pain and numbness in the hands bilaterally. He went for evaluation of possible carpal tunnel. EMG not consistent with this. MRA neck ordered showed moderate to severe narrowing at multiple levels. -knee pain: Follows with [facility]. Has hist ory of bilateral knee replacement -low back pain: X-ray from [place] signi ficant loss of height stenosis at L3 and S1-S3. 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 Severe bilateral neural foraminal stenosis is seen at the level with likely compression of both exiting L5 nerve roots. At L2-3 there is a left foraminal protrusion with possible compression of the exiting left L2 nerve root. Other degenerative changes as detailed above. He was referred and then evaluated by pain management rehabilitation. BPH: Stable. History of TURP. Follows with Dr Christianson RAIN: Follow with Dr Davis for Sleep apnea Follows with ophtho Dr Carballo : His adult son continues to have addiction issues which causes a great deal of stress and anxiety. He was following with [facility], a therapist and was doing well however now needs a new therapist. He continues on sertraline which has been fairly helpful. Recent attention issues, ?memory issues Preventive Colonoscopy up-to-date. He has chronic mild anemia. Had RSV and flu vaccine ROS see HPI PHYSICAL EXAM: GENERAL: Alert and oriented x 3. NAD EYES: EOMI. Anicteric. HENT: Moist mucous membranes. No scleral icterus. No cervical lymphadenopathy. LUNGS: Clear to auscultation bilaterally. CARDIOVASCULAR: Regular rate and rhythm. No JVD. ABDOMEN: Soft, non-tender +bs EXTREMITIES: No edema. Non-tender. SKIN: No rashes or lesions. Warm. NEUROLOGIC: No focal neurological deficits. CN II-XII grossly intact PSYCHIATRIC: Cooperative. Appropriate mood and affect [facility] Medical History Incontinence Eczema Arthritis Sinusitis Obesity Obesity Surgical History History of transurethral resection of prostate History of knee replacement procedure of right knee History of knee replacement procedure of left knee Family History Mother Cancer of kidney Father Pancreatic cancer Family/Other Breast cancer Prostate cancer Social History (Updated 06/14/25 @ 15:26 by Myra Cohen CMA) Housing: House Alcohol intake: current Patient Tobacco Use Status: Never used Tobacco e-Cigarette/Vaping Use: Never Used Use of substances other than those prescribed or required for medical reasons: No service: No Current occupational status: retired Cognitive needs: No Hearing needs: Yes (wears hearing aids) Vision needs: Yes (wears glasses) Questionnaire Thrive Questionnaire Date Thrive assessed: 11/16/24 I am a: Patient What is your living situation today?: I have a steady place to live Within the past 12 months, did the food you bought not last and you didn't have the money to get more?: Never true Within the past 12 months, did you worry whether your food would run out before you got money to buy more?: Never true Do you have trouble paying for medicines?: No Do you have trouble getting transportation to medical appointments?: No Do you have trouble paying your heating and electricity bill?: No Do you have trouble taking care of your child, family member or friend?: No Do you have trouble with day-to-day activities such as bathing, preparing meals, shopping, managing finances, etc.?: No Are you currently unemployed and looking for a job?: No Are you interested in more education?: Yes Please select the resources that you would like help with: None Currently or been in a relationship where the following occur: No concerns reported THRIVE Score: 0 SAV-7 AMB Questionnaire SAV-7 Date SAV - 7 assessed: 11/19/24 Source: Developed by Drs. Mynor Sutton, Terrie Rojas, Octavio Sandhu and colleagues, with an educational emerson from [employer]. Physical exam (Primary Care) Vital Signs: Last Vital Signs Pulse 76 06/14/25 15:23 Resp 14 06/14/25 15:23 BP 112/66 06/14/25 15:23 Pulse Ox 95 06/14/25 15:23 Oxygen Delivery Method Room Air 06/14/25 15:23 BMI result Body Mass Index 29.1 Tobacco/Smoking Status: Tobacco use Status Tobacco use date assessed 06/14/25 06/14/25 15:26 Patient Tobacco Use Status Never used Tobacco 06/14/25 15:26 e-Cigarette/Vaping Use Never Used 06/14/25 15:26 Thrive Assessment: Date of Thrive Assessment Date Thrive assessed 11/16/24 06/14/25 15:26 Currently or been in a relationship where the following occur: No concerns reported Coding Level of Care Code Est Pt Level 4 (24874) Diagnoses Syncope, unspecified syncope type R55 Syncope type: unspecified Attention deficit R41.840 Frequent falls R29.6 Anxiety F41.9 AVNRT (AV alex re-entry tachycardia) I47.19 Assessment & Plan Assessment & Plan (1) Syncope: Code(s): R55 - Syncope and collapse Category: Medical Qualifiers: Syncope type: unspecified Qualified Code(s): R55 - Syncope and collapse (2) Attention deficit: Code(s): R41.840 - Attention and concentration deficit Category: Medical (3) Frequent falls: Code(s): R29.6 - Repeated falls Category: Medical (4) Anxiety: Code(s): F41.9 - Anxiety disorder, unspecified Category: Medical (5) AVNRT (AV alex re-entry tachycardia): Code(s): I47.19 - Other supraventricular tachycardia Category: Medical Plan 74 year old male presenting for follow up Syncope-no further episodes. Continues cardiology follow up Attention deficit?, memory loss, frequent falls-referral for neuropsych testing and neurology referral Depression/anxiety-fairly well controlled on sertraline. Card given for psychologist outreach Orders: Referrals Neuropsychiatry Referral R41.840 - Attention and concentration deficit Neurology Referral R29.6 - Repeated falls, R41.840 - Attention and concentration deficit Medications: New diltiazem HCl CD (Cardizem CD) 120 mg PO DAILY 90 caps 1RF
[2025-06-14 15:23] VITALS: BP 112/66; PULSE 76; RESP 14; O2SAT 95; BMI 29.1
--- OUTSIDE RECORDS SUMMARY | 2025-06-14 17:28 | XMS_ITS | Encounter Summary ---
Author Organization [facility] Address [address] [place] [address] [place] [address] Phone Care Team Providers Care Security Incident Response Engineer Name Role Phone Diya Gonzalez MD Unavailable Diya Gonzalez MD Primary Care Provider [phone] Aliya Mckeon MD Unavailable [phone] Iggy Abraham MD Unavailable [phone] Froylan Rosa MD Unavailable Encounter Details Date Type Department Care Team (Late st Contact Info) Description 04/05/[address] [facility] Endoscopy Department [address] [place] [address] Social History Tobacco Use Types Packs/Day Years [...] documented as of this encounter Care Teams Security Incident Response Engineer Relationship Specialty Start Date End Date Diya Gonzalez MD PCP - General Internal Medicine 10/21/17 Diya Gonzalez MD Referring Physician Internal Medicine 08/07/17 Aliya Mckeon MD [facility] [address] [place] [address] [email or web address] Referring Physician Gastroenterology 11/14/17 Iggy Abraham MD [address] [place] [address] [email or web address] Medical Oncology 01/20/18 Froylan Rosa MD [address] [place] [address] Cardiology 02/27/23 documented as of this encounter Additional Source Comments The information contained in this document represents components of the legal health record. It is not the complete legal health record.[facility]
--- OUTSIDE RECORDS SUMMARY | 2025-06-14 17:28 | XMS_ITS | Clinical Summary ---
Author Organization [address] [place] [address] Address [address] [place] [address] Phone Care Team Providers Care Assistant Auto Center Manager Name Role Phone Diya Neumann MD Primary Care Provider [phone] Allergies Active Allergy Reactions Criticality Noted Date [...] Please proceed as indicated. Paroxysmal supraventricular tachycardia ([facility] V24) 02/07/2022 Overview (02/02/2025): Supraventricular tachycardia. He [...] Description 04/19/2025 1:30 PM EDT Office Visit [facility] [address] [place] [id number] Froylan Rosa MD Syncope, unspecified syncope type (Primary Dx); Paroxysmal supraventricular tachycardia (CMS/HCC V24); Vasovagal syncope from Last 3 Months Immunizations Name Administration Dates Next Due Moderna SARS-CoV-2 COVID-19, mRNA, LNP-S, preservative free 12/07/2020 Surgical History Surgery Date Site/Laterality Comments TONSILLECTOMY 1952 PROCEDURE: HISTORICAL TONSILLECTOMY; COMMENT: pinkyarline flores COLONOSCOPY 12/2011 PROCEDURE: GA COLONOSCOPY STOMA DX INCLUDING COLLJ SPEC SPX; [...] GEMUSE QTc 432 ms GEMUSE P Wave [place] 57 degrees GEMUSE T [place] 46 degrees GEMUSE ECG Interpretation Sinus rhythm [...] GEMUSE from Last 3 Months Insurance MEDICARE [facility] Care Teams Assistant Auto Center Manager Relationship Specialty Start Date End Date Diya Neumann MD [address] [place] [address] PCP - General Internal Medicine 02/02/25
--- OUTSIDE RECORDS SUMMARY | 2025-06-14 17:28 | XMS_ITS | Encounter Summary ---
Author Organization [facility] Address [address] [place] [address] Phone Care Team Providers Care Supply And Distribution Manager Name Role Phone Elsy Gonzalez OD Primary Care Provider + Diya Gonzalez MD Primary Care Provider Diya Gonzalez MD Unavailable [phone] Diya Gonzalez MD Primary Care Provider [phone] Aliya Mckeon MD Unavailable [phone] Iggy Abraham MD Unavailable [phone] Froylan Rosa MD Unavailable Encounter Details Date Type Department Care Team (Late st Contact Info) Description 09/10/2016 Ancillary Orders [facility] Endocrine, Diabetes, and Hypertension [address] [facility] [address] [place] [address] Celi Alaniz [address] [place] [address] [email or web address] Nontoxic multinodular goiter Social History Tobacco Use [...] 11:44 AM EST TESTS PERFORMED Thyroid/Neck Ultrasound (82043) INDICATIONS/REASONS FOR TESTS Thyroid mass FINDINGS Compared [...] MD - 09/10/2016 TESTS PERFORMED Thyroid/Neck Ultrasound (04510) INDICATIONS/REASONS FOR TESTS Thyroid mass FINDINGS Compared [...] size compared to prior scan previously biopsied [facility] Nodule(s) 5-9 mm Single Predominantly solid Left [...] goiter documented in this encounter Care Teams Supply And Distribution Manager Relationship Specialty Start Date End Date Carlos Elsy Saavedra OD [address] [place] [address] PCP - General Optometry 08/23/15 01/28/17 Diya Gonzalez MD [address] [place] [address] PCP - General Internal Medicine 01/29/17 10/20/17 Diya Gonzalez MD [address] [place] [address] PCP - General Internal Medicine 10/21/17 Diya Gonzalez MD [address] [place] [address] Referring Physician Internal Medicine 08/07/17 Aliya Mckeon MD [facility] [address] [address] [email or web address] Referring Physician Gastroenterology 11/14/17 Iggy Abraham MD [facility] [place] [address] [email or web address] Medical Oncology 01/20/18 Froylan Rosa MD [address] [place] [address] Cardiology 02/27/23 documented as of this encounter Additional Source Comments The information contained in this document represents components of the legal health record. It is not the complete legal health record.[facility]
--- OUTSIDE RECORDS SUMMARY | 2025-06-14 17:28 | XMS_ITS | Encounter Summary ---
Author Organization [facility] Address [address] [place] [address] Phone Care Team Providers Care Stage Hand Name Role Phone Elsy Gonzalez OD Primary Care Provider + Diya Gonzalez MD Primary Care Provider Diya Gonzalez MD Unavailable [phone] Diya Gonzalez MD Primary Care Provider Aliya Mckeon MD Unavailable [phone] Iggy Abraham MD Unavailable [phone] Froylan Rosa MD Unavailable Encounter Details Date Type Department Care Team (Late st Contact Info) Description 09/27/2015 Transcribe Orders [facility] Endocrine, Diabetes, and Hypertension [address] [facility] [address] [place] [address] Celi Alaniz [address] [facility] [place] [address] [email or web address] Nontoxic multinodular goiter (Primary Dx) Social History [...] Primary documented in this encounter Care Teams Stage Hand Relationship Specialty Start Date End Date Carlos Elsy Saavedra OD [address] [place] [address] PCP - General Optometry 08/23/15 01/28/17 Diya Gonzalez MD [address] [place] [address] PCP - General Internal Medicine 01/29/17 10/20/17 Diya Gonzalez MD [address] [place] [address] PCP - General Internal Medicine 10/21/17 Diya Gonzalez MD [address] [place] [address] Referring Physician Internal Medicine 08/07/17 Aliya Mckeon MD [address] [place] [address] [place], [facility]. [address] [place] [address] [email or web address] Referring Physician Gastroenterology 11/14/17 Iggy Abraham MD [address] [place] [address] [email or web address] Medical Oncology 01/20/18 Froylan Rosa MD [address] [place] [address] Cardiology 02/27/23 documented as of this encounter Additional Source Comments The information contained in this document represents components of the legal health record. It is not the complete legal health record.[facility]
--- OUTSIDE RECORDS SUMMARY | 2025-06-14 17:28 | XMS_ITS | Encounter Summary ---
Author Organization [facility] Address [address] [place] [address] [place] [address] Phone Care Team Providers Care Break Up Worker Name Role Phone Diya Gonzalez MD Unavailable Diya Gonzalez MD Primary Care Provider [phone] Aliya Mckeon MD Unavailable [phone] Iggy Abraham MD Unavailable [phone] Froylan Rosa MD Unavailable Encounter Details Date Type Department Care Team (Late st Contact Info) Description 03/30/2018 Procedure Pass [facility] Endoscopy Department [address] [place] [address] Social History Tobacco Use Types Packs/Day Years [...] documented as of this encounter Care Teams Break Up Worker Relationship Specialty Start Date End Date Diya Gonzalez MD PCP - General Internal Medicine 10/21/17 Diya Gonzalez MD Referring Physician Internal Medicine 08/07/17 Aliya Mckeon MD [facility] [address] [place] [address] [email or web address] Referring Physician Gastroenterology 11/14/17 Iggy Abraham MD [address] [place] [address] [email or web address] Medical Oncology 01/20/18 Froylan Rosa MD [address] [place] [address] Cardiology 02/27/23 documented as of this encounter Additional Source Comments The information contained in this document represents components of the legal health record. It is not the complete legal health record.[facility]
--- OUTSIDE RECORDS SUMMARY | 2025-06-14 17:28 | XMS_ITS | Encounter Summary ---
Author Organization [facility] Address [address] [place] [address] [place] [address] Phone Care Team Providers Care Trolley Car Mechanic Name Role Phone Diya Gonzalez MD Unavailable Diya Gonzalez MD Primary Care Provider [phone] Aliya Mckeon MD Unavailable [phone] Iggy Abraham MD Unavailable [phone] Froylan Rosa MD Unavailable Encounter Details Date Type Department Care Team (Late st Contact Info) Description 09/26/2022 Transcribe Orders [facility]EN [address] [place] [address] Sandra Duong, GOGGLES ASSEMBLER 2013 [facility] [address] [place] [address] [email or web address] Social History Tobacco Use Types Packs/Day Years [...] documented as of this encounter Care Teams Trolley Car Mechanic Relationship Specialty Start Date End Date Diya Gonzalez MD PCP - General Internal Medicine 10/21/17 Diya Gonzalez MD Referring Physician Internal Medicine 08/07/17 Aliya Mckeon MD [address] [place] [address] [email or web address] Referring Physician Gastroenterology 11/14/17 Iggy Abraham MD [address] [place] [address] [email or web address] Medical Oncology 01/20/18 Froylan Rosa MD 450 [place] [address] Cardiology 02/27/23 documented as of this encounter Additional Source Comments The information contained in this document represents components of the legal health record. It is not the complete legal health record.[facility]
--- OUTSIDE RECORDS SUMMARY | 2025-06-14 17:28 | XMS_ITS | Encounter Summary ---
Author Organization [facility] Address [address] [place] [address] Phone Care Team Providers Care Decorator Store Name Role Phone Diya Gonzalez MD Unavailable [phone] Diya Gonzalez MD Primary Care Provider [phone] Aliya Mckeon MD Unavailable [phone] Iggy Abraham MD Unavailable [phone] Froylan Rosa MD Unavailable [phone] Encounter Details Date Type Department Care Team (Late st Contact Info) Description 04/28/2023 Transcribe Orders [facility] SPEC[facility] [address] [place] [address] Don Chan [email or web address] Social History Tobacco Use Types Packs/Day Years [...] documented as of this encounter Care Teams Decorator Store Relationship Specialty Start Date End Date Diya Gonzalez MD PCP - General Internal Medicine 10/21/17 Diya Gonzalez MD Referring Physician Internal Medicine 08/07/17 Aliya Mckeon MD [address] [place] [address] [email or web address] Referring Physician Gastroenterology 11/14/17 Iggy Abraham MD 450 [place] [address] [email or web address] Medical Oncology 01/20/18 Froylan Rosa MD [address] [place] [address] Cardiology 02/27/23 documented as of this encounter Additional Source Comments The information contained in this document represents components of the legal health record. It is not the complete legal health record.[facility]
--- OUTSIDE RECORDS SUMMARY | 2025-06-14 17:28 | XMS_ITS | Encounter Summary ---
Author Organization [facility] Address [address] [place] [address] [place] [address] Phone Care Team Providers Care Integration Aide Name Role Phone Diya Gonzalez MD Unavailable Diya Gonzalez MD Primary Care Provider Aliya Mckeon MD Unavailable [phone] Iggy Abraham MD Unavailable [phone] Froylan Rosa MD Unavailable [phone] Encounter Details Date Type Department Care Team (Late st Contact Info) Description 08/07/2022 Ancillary Orders [facility] [place] [address] [address] Eduardo Gonzalez MD [address] [address] Bilateral knee pain Social History Tobacco Use [...] extruded mineralized medial menisci bilaterally. Eileen Duarte BALLOON SANDER IMG XR LOWER EXTRE MITY Final Result [...] extruded mineralized medial menisci bilaterally. Eileen Duarte BALLOON SANDER IMG XR LOWER EXTRE MITY Final Result documented in this encounter Visit Diagnoses Diagnosis Bilateral knee pain Pain in joint, lower leg Bilateral knee pain Pain in joint, lower leg documented in this encounter Additional Health Concerns Assessment Noted Time PHQ-2 Depression Total Score: 0 11/11/19 18 1:21 PM EST documented as of this encounter Care Teams Integration Aide Relationship Specialty Start Date End Date Diya Gonzalez MD PCP - General Internal Medicine 10/21/17 Diya Gonzalez MD Referring Physician Internal Medicine 08/07/17 Aliya Mckeon MD [facility] [address] [place] [address] [email or web address] Referring Physician Gastroenterology 11/14/17 Iggy Abraham MD [address] [place] [address] [email or web address] Medical Oncology 01/20/18 Froylan Rosa MD [address] [place] [address] Cardiology 02/27/23 documented as of this encounter Additional Source Comments The information contained in this document represents components of the legal health record. It is not the complete legal health record.[facility]
--- OUTSIDE RECORDS SUMMARY | 2025-06-14 17:28 | XMS_ITS | Encounter Summary ---
Author Organization [facility] Address [address] [place] [address] Phone Care Team Providers Care Foundry Worker General Name Role Phone Elsy Gonzalez OD Primary Care Provider + Diya Gonzalez MD Primary Care Provider Diya Gonzalez MD Unavailable [phone] Diya Gonzalez MD Primary Care Provider Aliya Mckeon MD Unavailable [phone] Iggy Abraham MD Unavailable [phone] Froylan Rosa MD Unavailable [phone] Encounter Details Date Type Department Care Team (Late st Contact Info) Description 08/23/2015 Transcribe Orders [facility] Endocrine, Diabetes, and Hypertension [address] [facility] 2nd [place] [address] Celi Alaniz [address] [facility] [place] [address] [email or web address] Thyroid nodule (Primary Dx) Social History [...] goiter documented in this encounter Care Teams Foundry Worker General Relationship Specialty Start Date End Date Elsy Gonzalez OD [address] [place] [address] PCP - General Optometry 08/23/15 01/28/17 Diya Gonzalez MD [address] [place] [address] PCP - General Internal Medicine 01/29/17 10/20/17 Diya Gonzalez MD [address] [place] [address] PCP - General Internal Medicine 10/21/17 Diya Gonzalez MD [address] [place] [address] Referring Physician Internal Medicine 08/07/17 Aliya Mckeon MD [address] [place] [address] [address] [place] [place] [address] [email or web address] Referring Physician Gastroenterology 11/14/17 Iggy Abraham MD [address] [place] [address] [email or web address] Medical Oncology 01/20/18 Froylan Rosa MD [address] [place] [address] Cardiology 02/27/23 documented as of this encounter Additional Source Comments The information contained in this document represents components of the legal health record. It is not the complete legal health record.[facility]
--- OUTSIDE RECORDS SUMMARY | 2025-06-14 17:28 | XMS_ITS | Encounter Summary ---
Author Organization [facility] Address [address] [place] [address] Phone Care Team Providers Care Caregivers Non Medical Name Role Phone Diya Gonzalez MD Unavailable Diya Gonzalez MD Primary Care Provider [phone] Aliya Mckeon MD Unavailable [phone] Iggy Abraham MD Unavailable [phone] Froylan Rosa MD Unavailable Encounter Details Date Type Department Care Team (Late st Contact Info) Description 11/18/2018 Procedure Pass [facility], [facility] [place], MRI [address] [address] Social History Tobacco Use Types Packs/Day Years [...] documented as of this encounter Care Teams Caregivers Non Medical Relationship Specialty Start Date End Date Diya Gonzalez MD PCP - General Internal Medicine 10/21/17 Diya Gonzalez MD Referring Physician Internal Medicine 08/07/17 Aliya Mckeon MD [address] [place] [address] [address] [place] [address] [email or web address] Referring Physician Gastroenterology 11/14/17 Iggy Abraham MD 450 [place] [address] [email or web address] Medical Oncology 01/20/18 Froylan Rosa MD 450 [place] [address] Cardiology 02/27/23 documented as of this encounter Additional Source Comments The information contained in this document represents components of the legal health record. It is not the complete legal health record.[facility]
--- OUTSIDE RECORDS SUMMARY | 2025-06-14 17:28 | XMS_ITS | Encounter Summary ---
Author Organization [facility] Address [address] [place] [address] Phone Care Team Providers Care Garnishment Specialist Name Role Phone Diya Gonzalez MD Unavailable [phone] Diya Gonzalez MD Primary Care Provider [phone] Aliya Mckeon MD Unavailable [phone] Iggy Abraham MD Unavailable [phone] Froylan Rosa MD Unavailable Encounter Details Date Type Department Care Team (Latest Contact Info) Description 03/14/2019 [facility]counter [facility] [place] [address] [facility], 10th [place] [address] Mckay Shine MD, PhD [address] [place] [address] Joshua [email or web address]. U Claustrophobia; Situational anxiety Social History Tobacco [...] documented as of this encounter Care Teams Garnishment Specialist Relationship Specialty Start Date End Date Diya Gonzalez MD PCP - General Internal Medicine 10/21/17 Diya Gonzalez MD Referring Physician Internal Medicine 08/07/17 Aliya Mckeon MD [address] [place] [address] G[address] [facility]. [address] [place] [address] [email or web address] Referring Physician Gastroenterology 11/14/17 Iggy Abraham MD 450 [place] [address] [email or web address] Medical Oncology 01/20/18 Froylan Rosa MD 450 [place] [address] Cardiology 02/27/23 documented as of this encounter Additional Source Comments The information contained in this document represents components of the legal health record. It is not the complete legal health record.[facility]
--- OUTSIDE RECORDS SUMMARY | 2025-06-14 17:28 | XMS_ITS | Encounter Summary ---
Author Organization [facility] Address [address] [place] [address] Phone Care Team Providers Care Wheelchair Van Driver Name Role Phone Diya Gonzalez MD Primary Care Provider [phone] Diya Gonzalez MD Unavailable Diya Gonzalez MD Primary Care Provider [phone] Aliya Mckeon MD Unavailable [phone] Iggy Abraham MD Unavailable [phone] Froylan Rosa MD Unavailable Encounter Details Date Type Department Care Team (Late st Contact Info) Description 07/07/2017 Procedure Pass [facility] Periop [address] [place] [address] Social History Tobacco Use Types Packs/Day Years [...] on filedocumented in this encounter Care Teams Wheelchair Van Driver Relationship Specialty Start Date End Date Diya Gonzalez MD PCP - General Internal Medicine 01/29/17 10/20/17 Diya Gonzalez MD PCP - General Internal Medicine 10/21/17 Diya Gonzalez MD Referring Physician Internal Medicine 08/07/17 Aliya Mckeon MD [address] [place] [address] G[address] [place] [address] [email or web address] Referring Physician Gastroenterology 11/14/17 Iggy Abraham MD [address] [place] [address] [email or web address] Medical Oncology 01/20/18 Froylan Rosa MD 450 [place] [address] Cardiology 02/27/23 documented as of this encounter Additional Source Comments The information contained in this document represents components of the legal health record. It is not the complete legal health record.[facility]
--- OUTSIDE RECORDS SUMMARY | 2025-06-14 17:28 | XMS_ITS | Clinical Summary ---
Author Organization [facility] Address [address] [place] [address] Phone Care Team Providers Care American Indian Studies Professor Name Role Phone Diya Gonzalez MD Unavailable [phone] Diya Gonzalez MD Primary Care Provider Aliya Mckeon MD Unavailable [phone] Iggy Abraham MD Unavailable Froylan Rosa MD Unavailable Allergies Active Allergy [...] per day (including in other prescribed or hqvd-mcb-zjnplwh medications). 0 Active aspirin 81 mg chewable [...] VACCINE (1 - 1-dose 75+ series) 2023 INFLUENZA VACCINE (#1) 2025 , 07/14/2021, 11/02/2020, Additional history exists COVID-19 VACCINE (2024- season) 2025 08/02/2022, 08/08/2021, 01/04/2021, Additional history exists Adult Td,Tdap Booster 08/16/2029 [...] this topic Medical Devices Implanted Type Area Refrigeration Manager Device Identifier Shelf Expiration Date Model / Serial / Lot Knee Implant Component Size 10 Femoral Persona Marine Cement Cruciate Retaining Standard Left - [id number] Implanted:Qty: 1 on 05/12/2023 by Eduardo Gonzalez MD at [facility] Left: Knee AMBROCIO BIOMET [id number] 05/05/2032 [id number] / / [id number] Description:The implant type , laterality (when applicable), size, and expiration date have been visually and verbally confirmed by the Surgeon, Circulating RN and Scrub Personnel. Intraoccular Lenses Loop Recorder Description:medtronic - reve al ILNQ [id number] implanted 06/30/2020 Cement Bone 1x40gm Palacos R High Viscosity - [id number] Implanted:Qty: 2 on 10/09/2022 by Eduardo Gonzalez MD at [facility] Right: Knee Nubli [id number] 03/05/2026 [id number] / / [id number] Description:The implant type , laterality (when applicable), size, and expiration date have been visually and verbally confirmed by the Surgeon, Circulating RN and Scrub Personnel. Knee Implant Component Size 10 Femoral Persona Marine Cement Cruciate Retaining Standard Right - [id number] Implanted:Qty: 1 on 10/09/2022 by Eduardo Gonzalez MD at [facility] Right: Knee AMBROCIO BIOMET [id number] 10/31/2031 [id number] / / [id number] Description:The implant type , laterality (when applicable), size, and expiration date have been visually and verbally confirmed by the Surgeon, Circulating RN and Scrub Personnel. Knee Implant 5.0deg Component Tibial Persona Titanium Stemmed Cemented Rt Size G - [id number] Implanted:Qty: 1 on 10/09/2022 by Eduardo Gonzalez MD at [facility] Right: Knee AMBROCIO BIOMET [id number] 01/22/2032 [id number] / / [id number] Description:The implant type , laterality (when applicable), size, and expiration date have been visually and verbally confirmed by the Surgeon, Circulating RN and Scrub Personnel. Knee Patella 35mm Madelaine Persona All Polyethylene Cemented Conventional - [id number] Implanted:Qty: 1 on 10/09/2022 by Eduardo Gonzalez MD at [facility] Right: Knee AMBROCIO BIOMET [id number] 08/04/2027 [id number] / / [id number] Description:The implant type , laterality (when applicable), size, and expiration date have been visually and verbally confirmed by the Surgeon, Circulating RN and Scrub Personnel. Knee Implant 12mm 8 11 Component Articular Surface Persona Polyethylene Vivacite E Cruciate Retaining Fixed Rt Gh - [id number] Implanted:Qty: 1 on 10/09/2022 by Eduardo Gonzalez MD at [facility] Right: Knee AMBROCIO BIOMET [id number] 01/29/2027 [id number] / / [id number] Description:The implant type , laterality (when applicable), size, and expiration date have been visually and verbally confirmed by the Surgeon, Circulating RN and Scrub Personnel. Knee Implant 5deg Component Tibial Persona Titanium Stemmed Cemented Lt Size F - [id number] Implanted:Qty: 1 on 05/12/2023 by Eduardo Gonzalez MD at [facility] Left: Knee AMBROCIO BIOMET [id number] 01/26/2033 [id number] / / [id number] Description:The implant type , laterality (when applicable), size, and expiration date have been visually and verbally confirmed by the Surgeon, Circulating RN and Scrub Personnel. Knee Implant 10mm 8 11 Component Articular Surface Persona Polyethylene Vivacite E Cruciate Retaining Fixed Lt Ef - [id number] Implanted:Qty: 1 on 05/12/2023 by Eduardo Gonzalez MD at [facility] Left: Knee AMBROCIO BIOMET [id number] 02/12/2028 [id number] / / [id number] Description:The implant type , laterality (when applicable), size, and expiration date have been visually and verbally confirmed by the Surgeon, Circulating RN and Scrub Personnel. Knee Patella 35mm Madelaine Persona All Polyethylene Cemented Conventional - [id number] Implanted:Qty: 1 on 05/12/2023 by Eduardo Gonzalez MD at [facility] Left: Knee AMBROCIO BIOMET 02/10/2028 [id number] / / [id number] Description:The implant type , laterality (when applicable), size, and expiration date have been visually and verbally confirmed by the Surgeon, Circulating RN and Scrub Personnel. Cement Bone 40g Palacos R High Viscosity Cs/20ea - [id number] Issue Replaced By Ps# [id number] - [id number] Implanted:Qty: 2 on 05/12/2023 by Eduardo Gonzalez MD at [facility] Left: Knee Nubli 10/05/2027 [id number] / / [id number] Environmental Professional Component L 30mm Od 14 Knee Persona Extension Tivanium Cemented Tapered - [id number] Implanted:Qty: 1 on 05/12/2023 by Eduardo Gonzalez MD at [facility] Left: Knee AMBROCIO BIOMET [id number] 03/07/2033 [id number] / / [id number] Description:The implant type , laterality (when applicable), size, and expiration date have been visually and verbally confirmed by the Surgeon, Circulating RN and Scrub Personnel. Insurance [employer] MEDEX SUPPLEMENT MEDICARE PART A & B [employer] MED[employer] SUPPLEMENT MEDICARE PART A & B [employer] SUPPLEMENT MEDICARE PART A & B [employer] MED[employer] SUPPLEMENT MEDICARE PART A & B [employer] MED[employer] SUPPLEMENT MEDICARE PART A & B [employer] MED[employer] SUPPLEMENT MEDICARE PART A & B [employer] MED[employer] SUPPLEMENT [employer] SUPPLEMENT MEDEX SUPPLEMENT Advance Directives For more information, please contact: [phone] (9AM - 5PM [facility], Friday-Friday) Documents on File Type Date Recorded Patient Cutter Down Expl anation Healthcare Proxy 07/07/2017 6:09 [address] * Full Code (Latest Code Status on File) Date Activated Date Inactivated Comments 10/09/2022 8:41 PM Question Answer Comments Code Status Confirmed With: Patient * Full Code (Presumed) Date Activated Date Inactivated Comments 07/07/2017 11:10 AM 07/08/2017 10:52 AM Care Teams American Indian Studies Professor Relationship Specialty Start Date End Date Diya Gonzalez MD PCP - General Internal Medicine 10/21/17 Diya Gonzalez MD Referring Physician Internal Medicine 08/07/17 Aliya Mckeon MD [facility] [place] [address] [email or web address] Referring Physician Gastroenterology 11/14/17 Iggy Abraham MD [facility] [place] [address] [email or web address] Medical Oncology 01/20/18 Froylan Rosa MD [address] [place] [address] Cardiology 02/27/23 Additional Source Comments The information contained in this document represents components of the legal health record. It is not the complete legal health record.[facility]
--- OUTSIDE RECORDS SUMMARY | 2025-06-14 17:28 | XMS_ITS | Encounter Summary ---
Author Organization [facility] Address [address] [place] [address] Phone Care Team Providers Care Machine Pecan Picker Name Role Phone Diya Gonzalez MD Unavailable Diya Gonzalez MD Primary Care Provider [phone] Aliya Mckeon MD Unavailable [phone] Iggy Abraham MD Unavailable [phone] Froylan Rosa MD Unavailable Encounter Details Date Type Department Care Team (Late st Contact Info) Description 10/09/2022 Procedure Pass [facility] PERIOPERATIVE DEPT [address] [place] [address] Social History Tobacco Use Types [...] 8:56 PM EST Shannan Zayas RN * [place] Suicide Severity Rating Scale (Screener/Recent Self-Report) Question [...] documented as of this encounter Care Teams Machine Pecan Picker Relationship Specialty Start Date End Date Diya Gonzalez MD PCP - General Internal Medicine 10/21/17 Diya Gonzalez MD Referring Physician Internal Medicine 08/07/17 Aliya Mckeon MD [address] [place] [address] [address] [place] [address] [email or web address] Referring Physician Gastroenterology 11/14/17 Iggy Abraham MD [address] [place] [address] [email or web address] Medical Oncology 01/20/18 Froylan Rosa MD [address] [place] [address] Cardiology 02/27/23 documented as of this encounter Additional Source Comments The information contained in this document represents components of the legal health record. It is not the complete legal health record.[facility]
--- OUTSIDE RECORDS SUMMARY | 2025-06-14 17:28 | XMS_ITS | Encounter Summary ---
Author Organization [facility] Address [address] [place] [address] Phone Care Team Providers Care Weigher And Grader Name Role Phone Diya Gonzalez MD Unavailable Diya Gonzalez MD Primary Care Provider [phone] Aliya Mckeon MD Unavailable [phone] Iggy Abraham MD Unavailable [phone] Froylan Rosa MD Unavailable Encounter Details Date Type Department Care Team (Late st Contact Info) Description 05/12/2023 Procedure Pass [facility] PERIOPERATIVE DEPT [address] [place] [address] Social History Tobacco Use Types [...] 6:40 PM EDT Sana Salinas RN * [place] Suicide Severity Rating Scale (Screener/Recent Self-Report) Question [...] documented as of this encounter Care Teams Weigher And Grader Relationship Specialty Start Date End Date Diya Gonzalez MD PCP - General Internal Medicine 10/21/17 Diya Gonzalez MD Referring Physician Internal Medicine 08/07/17 Aliya Mckeon MD [facility] [place] [address] [email or web address] Referring Physician Gastroenterology 11/14/17 Iggy Abraham MD [address] [place] [address] [email or web address] Medical Oncology 01/20/18 Froylan Rosa MD [address] [place] [address] Cardiology 02/27/23 documented as of this encounter Additional Source Comments The information contained in this document represents components of the legal health record. It is not the complete legal health record.[facility]
== END 2025-06-14 15:57 | disposition home or self-care (01) ==
LOC: HO.HMCFM 15:04
PROVIDERS: PCP Internal Medicine; Visit Provider Internal Medicine
DX: R55 Syncope and collapse (principal); R41.840 Attention and concentration deficit; R29.6 Repeated falls; F41.9 Anxiety disorder, unspecified; I47.19 Other supraventricular tachycardia

== ENCOUNTER → 2025-06-14 15:04 | Outpatient (BNVA) | payer MEDICARE, SELFPAY | PROVIDERS: PCP Internal Medicine; Visit Provider Internal Medicine | DX: R55 Syncope and collapse (principal); R41.840 Attention and concentration deficit; R29.6 Repeated falls; F41.9 Anxiety disorder, unspecified; I47.19 Other supraventricular tachycardia | CPT/HCPCS: 99212 ==

== ENCOUNTER 2025-07-25 14:11 | Outpatient (REF) | payer MEDICARE, SELFPAY | END 2025-07-25 14:12 | disposition home or self-care (01) | LOC: HO.WFDLDS 14:11 | PROVIDERS: Visit Provider Internal Medicine | DX: Z13.89 Encounter for screening for other disorder (principal) ==

== ENCOUNTER 2025-07-26 09:26 | Outpatient (REF) | payer MEDICARE, SELFPAY ==
[2025-07-26 09:48] LABS: MANUAL DIFF FLAG NO
--- OUTSIDE RECORDS SUMMARY | 2025-07-26 10:34 | XMS_ITS | Data Portability ---
Author Organization [place] - [facility], Allergy Address [address] [address] Care Team Providers Care Drilling Foreman Name Role Phone LeightonROHITH FLEMING Primary Care Provider Assessment Encounter Date Assessment [...] Organization Details Recorded Time Chronic ethmoidal sinusitis 81899733 Active 024 VINCENT MTZ MD 100 [facility],[place] [address], [place] [place], [address] , [facility] - [facility] 4 12:14:38 Toothache 84031219 Active 024 VINCENT MTZ MD 100 [facility],[place] [address], [facility] [place], [address] , [facility] - [facility] [place] 4 12:14:47 Atypical facial pain 58868750 Active 024 VINCENT MTZ MD 100 [facility],[place] [address], [place] [place], [address] , [facility] - [facility] [place] 4 12:21:23 Problem Notes None recorded. Procedures Surgical History Date Name Laterality Status Provider Name and Address Organization Details Recorded Time 03/04/2024 NasalEndos copy_DP completed VINCENT MTZ MD 100 [facility],[place] [address], [place], [address], [facility] - [facility] 03/04/2024 12:20:41 Imaging Results None recorded. Procedure Notes None recorded. Medical Equipment None [...] Body mass index (BMI) Body weight Systolic And Diastolic Provider Name and Address Organization Details Last Updated DateTime 4 78 /min 97 [degF] 175.26 cm 29.5 kg/m2 84307.4 7 g 117/73 mm[Hg] Dari Harper i [facility] 4 11:52:18 Date Recorded Body height Body mass index (BMI) Body weight Provider Name and Address Organization Details Last Updated DateTime 08/02/2024 175.26 cm 29.5 kg/m2 11821.47 g Dari Shultz [facility] 08/02/2024 10:36:11 Social History None recorded. Functional Status None recorded. Mental Status None recorded. Family History Nothing Reported. Medical History No medical history recorded. Past Encounters Encounter ID Performer Location Encounter Start Date Encounter Closed Date Diagnosis/Indication Diagnosis SNOMED-CT Code Diagnosis ICD10 Code Diagnosis IMO Codes Diagnosis Note [id number] VINCENT MTZ MD [facility] of [address] [address] 03/04/2024 11:25:37 03/04/2024 12:27:55 Chronic ethmoidal sinusitis 40011416 J32.2 Symptomati raz improved on doxy. No purulence or polyps on nasal endoscopy. No need for surgical interventi on. I recommend he complete his course of doxy and have regular dental visits. I personally reviewed his CT scan. Toothache 85276835 K08.8 9 resolved. Atypical facial pain 713 [address] G50.1 resolved [id number] LAURE HERNANDEZ PA-C [facility] on [address] [place] [address] 08/02/2024 10:33:31 08/02/2024 10:58:27 Chronic ethmoidal sinusitis 01865216 J32.2 Health Concerns Section Related Observation LastModified by Organization Detai ls LastModified Time None Recorded Concern Status LastModified by Organization Details LastModified Time None Recorded Advance Directives Directive None Recorded Payers Insurance Date Sequence Insurance Name Policy Number Policy King Covered Member ID King Member ID Guarantor Name 07/30/2024 1 [place] [employer] Vincent Beal [id number] Vincent Beal 07/30/2024 2 [place] [id number] Vincent Beal [id number] Vincent Beal Notes Date Note Type Note Provider Name and Address Organization Details Recorded Time 03/04/2024 text/html ROS as noted in the HPI He presents for sinusitis. He had a CT max/face 02/09/24 which showed maxillary and ethmoidal sinus disease (on my personal review it was very mild). He reports poor teeth and dental pain in his right maxillary teeth. This has resolved. He is 1 week into a 2 week course of doxycycline. He has not had recurring sinusitis. VINCENT MTZ MD [address] [place] [address], [address], [facility] - [facility] 03/04/2024 12:22:10 08/02/2024 text/html ROS as noted in the HPI 73 year old male presents today for follow up for sinus issues.He had an MRI in January of his c-spine which showed an incidental finding or some ethmoid sinus process. A follow up CT maxillofacial at [facility] showed opacification of bilateral ethmoid and [...] pain. No nasal drainage. ADAMA RYAN MD [address] [place] [address], [address], [facility] - [facility] 08/02/2024 16:32:14
[2025-07-26 11:02] LABS: Hematocrit 41.1 % (42.0-52.0); Hemoglobin 14.0 g/dl (14.0-18.0); Imm Gran Abs Auto 0.02 X10*3/uL (0.00-0.03); Imm Gran Pct Auto 0.4 % (0.0-0.4); Lymphocytes Absolute Auto 1.0 X10*3/uL (1.2-4.9); Mean Corpuscular HGB Conc 34.1 g/dl (31.0-36.0); Mean Corpuscular Hemoglobin 32.3 pg (27.0-33.0); Mean Corpuscular Volume 94.7 fL (80.0-98.0); NRBC Abs Auto 0.000 X10*3/uL (0.0-0.012); NRBC Pct Auto 0.0 /100WBC (0.0-0.2); Platelet Count 145 X10*3/uL (160-400); Red Blood Count 4.34 X10*6/uL (4.60-5.80); White Blood Count 4.6 X10*3/uL (4.8-10.8)
[2025-07-26 12:48] LABS: Folate 14.1 ng/mL (> or = 4.0); Vitamin B12 671 pg/mL (200-900)
== END 2025-07-26 09:27 | disposition home or self-care (01) ==
LOC: HO.LAB 09:26
PROVIDERS: PCP Internal Medicine; Visit Provider Internal Medicine
DX: R41.3 Other amnesia (principal); D69.6 Thrombocytopenia, unspecified
CPT/HCPCS: 82607; 82746; 83090; 83921; 85025

== ENCOUNTER → 2025-09-11 07:44 | Outpatient (BNV) | payer MEDICARE, SELFPAY | PROVIDERS: PCP Internal Medicine; Visit Provider Radiology Diagnostic Radiology | DX: R41.3 Other amnesia (principal); J34.89 Other specified disorders of nose and nasal sinuses | CPT/HCPCS: 70551 ==

== ENCOUNTER 2025-09-11 08:09 | Outpatient (REF) | payer MEDICARE, SELFPAY ==
--- NOTE | ~2025-09-11 | MR_ITS ---
EXAMINATION: MR BRAIN WITHOUT CONTRAST CLINICAL INFORMATION: R 41.3 COMPARISON: None available. TECHNIQUE: MRI of the brain was obtained using routine sequences without contrast. FINDINGS: No restricted diffusion. No acute intracranial hemorrhage, mass effect, midline shift, hydrocephalus or herniation. Celis-white matter differentiation is normal. Bilateral multifocal punctate subcortical and deep white matter hyperintense T2 FLAIR signal involving centrum semiovale and pascal radiata, the most conspicuous in the right superior frontal gyrus. Prominence of the extra-axial CSF spaces cerebral sulci and ventricles. Posterior cranial fossa contents demonstrated no acute hemorrhage or mass effect. Normal position of the cerebellar tonsils. Sellar/suprasellar region is normal. Polypoid mucosal thickening, paranasal sinuses. MR/MR head/brain wo con IMPRESSION: No acute brain abnormality. Nonspecific white matter T2 FLAIR signal. Consider small vessel occlusive disease versus demyelinating processes among other etiologies. Polypoid pattern paranasal sinus disease. Electronically signed by: Noé Sher MD 09/12/2025 07:58 AM EST
--- OUTSIDE RECORDS SUMMARY | 2025-09-11 08:12 | XMS_ITS | Encounter Summary ---
Author Organization [facility] Address [address] [place] [address] Phone Care Team Providers Care Automotive Service Technician Name Role Phone Diya Gonzalez MD Unavailable Diya Gonzalez MD Primary Care Provider [phone] Aliya Mckeon MD Unavailable [phone] Iggy Abraham MD Unavailable [phone] Froylan Rosa MD Unavailable [phone] Encounter Details Date Type Department Care Team (Late st Contact Info) Description 11/18/2018 Procedure Pass [facility], [facility] [place], MRI [address] [address] Social History Tobacco Use Types Packs/Day Years [...] documented as of this encounter Care Teams Automotive Service Technician Relationship Specialty Start Date End Date Diya Gonzalez MD PCP - General Internal Medicine 10/21/17 Diya Gonzalez MD Referring Physician Internal Medicine 08/07/17 Aliya Mckeon MD [address] [place] [place] [address] [email or web address] Referring Physician Gastroenterology 11/14/17 Iggy Abraham MD [address] [place] [place] [address] [email or web address] Medical Oncology 01/20/18 Froylan Rosa MD [address] [place] [place] [address] Cardiology 02/27/23 documented as of this encounter Additional Source Comments The information contained in this document represents components of the legal health record. It is not the complete legal health record.[facility]
--- OUTSIDE RECORDS SUMMARY | 2025-09-11 08:12 | XMS_ITS | Encounter Summary ---
Author Organization [facility] Address [address] [place] [address] Phone Care Team Providers Care Graphic Design Manager Name Role Phone Diya Gonzalez MD Unavailable Diya Gonzalez MD Primary Care Provider [phone] Aliya Mckeon MD Unavailable [phone] Iggy Abraham MD Unavailable [phone] Froylan Rosa MD Unavailable Encounter Details Date Type Department Care Team (Late st Contact Info) Description 04/28/2023 Transcribe Orders [facility] Lab Main [address] [place], [place] [id number] Don Chan [email or web address] Social History Tobacco Use Types Packs/Day Years [...] documented as of this encounter Care Teams Graphic Design Manager Relationship Specialty Start Date End Date Diya Gonzalez MD PCP - General Internal Medicine 10/21/17 Diya Gonzalez MD Referring Physician Internal Medicine 08/07/17 Aliya Mckeon MD [address] [place] [address] [place] [address] [email or web address] Referring Physician Gastroenterology 11/14/17 Iggy Abraham MD [address] [place] [address] [place] [address] [email or web address] Medical Oncology 01/20/18 Froylan Rosa MD [address] [place] [address] [place] [address] Cardiology 02/27/23 documented as of this encounter Additional Source Comments The information contained in this document represents components of the legal health record. It is not the complete legal health record.[facility]
--- OUTSIDE RECORDS SUMMARY | 2025-09-11 08:12 | XMS_ITS | Encounter Summary ---
Author Organization [facility] Address [address] [place] [address] Phone Care Team Providers Care Labor Relations Teacher Name Role Phone Elsy Gonzalez OD Primary Care Provider + Diya Gonzalez MD Primary Care Provider Diya Gonzalez MD Unavailable [phone] Diya Gonzalez MD Primary Care Provider Aliya Mckeon MD Unavailable [phone] Iggy Abraham MD Unavailable [phone] Froylan Rosa MD Unavailable [phone] Encounter Details Date Type Department Care Team (Late st Contact Info) Description 09/27/2015 Transcribe Orders [facility] Endocrine, Diabetes, and Hypertension [address] [facility] [address]nd [place] [address] Celi Alaniz [address] [place] [address] [email or web address] Nontoxic multinodular goiter (Primary Dx) [...] Primary documented in this encounter Care Teams Labor Relations Teacher Relationship Specialty Start Date End Date Elsy Gonzalez OD [address] [place] [address] PCP - General Optometry 08/23/15 01/28/17 Diya Gonzalez MD [address] [place] [address] PCP - General Internal Medicine 01/29/17 10/20/17 Diya Gonzalez MD [address] [place] [address] PCP - General Internal Medicine 10/21/17 Diya Gonzalez MD [address] [place] [address] Referring Physician Internal Medicine 08/07/17 Aliya Mckeon MD [address] [place] [place] [address] [email or web address] Referring Physician Gastroenterology 11/14/17 Iggy Abraham MD [address] [place] [place] [address] [email or web address] Medical Oncology 01/20/18 Froylan Rosa MD [address] [place] [place] [address] Cardiology 02/27/23 documented as of this encounter Additional Source Comments The information contained in this document represents components of the legal health record. It is not the complete legal health record.[facility]
--- OUTSIDE RECORDS SUMMARY | 2025-09-11 08:12 | XMS_ITS | Data Portability ---
Author Organization [place] - [facility], Allergy Address [address] [address] Care Team Providers Care Cloth Winding Supervisor Name Role Phone LeightonROHITH FLEMING Primary Care Provider [phone] Assessment Encounter Date Assessment Date Assessment LastModified [...] Organization Details Recorded Time Chronic ethmoidal sinusitis 78532386 Active 024 VINCENT MTZ MD 100 [facility],[place] [address], [facility] [place] [place], [address] , [facility] - [facility] 4 12:14:38 Toothache 43762799 Active 024 VINCENT MTZ MD 100 [facility],[place] [address], [facility] [place], [address] , [facility] - [facility] [place] 4 12:14:47 Atypical facial pain 57874754 Active 024 VINCENT MTZ MD 100 [facility],[place] [address], [facility] [place] [place], [address] , [facility] - [facility] [place] 4 12:21:23 Problem Notes None recorded. Procedures Surgical History Date Name Laterality Status Provider Name and Address Organization Details Recorded Time 03/04/2024 NasalEndos copy_DP completed VINCENT MTZ MD 100 [facility],[place] [address], [place], [address], [facility] - [facility] 03/04/2024 12:20:41 Imaging Results None recorded. Procedure [...] /min 97 [degF] 175.26 cm 29.5 kg/m2 14325.4 7 g 117/73 mm[Hg] Dari Harper i [facility] 4 11:52:18 Date Recorded Body height Body mass index (BMI) Body weight Provider Name and Address Organization Details Last Updated DateTime 08/02/2024 175.26 cm 29.5 kg/m2 00576.47 g Dari Shultz [facility] 08/02/2024 10:36:11 Social History None recorded. Functional Status None recorded. Mental Status None recorded. Family History Nothing Reported. Medical History No medical history recorded. Past Encounters Encounter ID Performer Location Encounter Start Date Encounter Closed Date Diagnosis/Indication Diagnosis SNOMED-CT Code Diagnosis ICD10 Code Diagnosis IMO Codes Diagnosis Note [id number] VINCENT MTZ MD [facility] of [address] [address] 03/04/2024 11:25:37 03/04/2024 12:27:55 Chronic ethmoidal sinusitis 93712740 J32.2 Symptomati raz improved on doxy. No purulence or polyps on nasal endoscopy. No need for surgical interventi on. I recommend he complete his course of doxy and have regular dental visits. I personally reviewed his CT scan. Toothache 20852098 K08.8 9 resolved. Atypical facial pain 713 [address] G50.1 resolved [id number] LAURE HERNANDEZ PA-C [facility] on [address] [place] [address] 08/02/2024 10:33:31 08/02/2024 10:58:27 Chronic ethmoidal sinusitis 40100799 J32.2 Health Concerns Section Related Observation LastModified by Organization Detai ls LastModified Time None Recorded Concern Status LastModified by Organization Details LastModified Time None Recorded Advance Directives Directive None Recorded Payers Insurance Date Sequence Insurance Name Policy Number Policy King Covered Member ID King Member ID Guarantor Name 07/30/2024 1 [place] [employer] Vincent Beal [id number] Vincent Beal 07/30/2024 2 [place]) [id number] Vincent Beal [id number] Vincent Beal Notes Date Note Type [...] not had recurring sinusitis. VINCENT MTZ MD [address] [place] [address], [address], [facility] - [facility] 03/04/2024 12:22:10 08/02/2024 text/html ROS as noted in the HPI 73 year old male presents today for follow up for sinus issues.He had an MRI in January of his c-spine which showed an incidental finding or some ethmoid sinus process. A follow up CT maxillofacial at [facility] showed opacification of bilateral ethmoid and [...] pain. No nasal drainage. ADAMA RYAN MD [address] [place] [address], [address], [facility] - [facility] 08/02/2024 16:32:14
--- OUTSIDE RECORDS SUMMARY | 2025-09-11 08:12 | XMS_ITS | Encounter Summary ---
Author Organization [facility] Address [address] [place] [address] Phone Care Team Providers Care Body Liner Name Role Phone Diya Gonzalez MD Unavailable Diya Gonzalez MD Primary Care Provider [phone] Aliya Mckeon MD Unavailable [phone] Iggy Abraham MD Unavailable [phone] Froylan Rosa MD Unavailable Encounter Details Date Type Department Care Team (Latest Contact Info) Description 03/14/2019 [facility] En[facility], [facility] [place] [address] [place] [address], 10[address] [place] [address] Mckay Shine MD, PhD [address] [place] [address] [address] Joshua [email or web address] U Claustrophobia; Situational anxiety Social History Tobacco [...] documented as of this encounter Care Teams Body Liner Relationship Specialty Start Date End Date Diya Gonzalez MD PCP - General Internal Medicine 10/21/17 Diya Gonzalez MD Referring Physician Internal Medicine 08/07/17 Aliya Mckeon MD [address] [place] [place] [address] [email or web address] Referring Physician Gastroenterology 11/14/17 Iggy Abraham MD [address] [place] [place] [address] [email or web address] Medical Oncology 01/20/18 Froylan Rosa MD [address] [place] [place] [address] Cardiology 02/27/23 documented as of this encounter Additional Source Comments The information contained in this document represents components of the legal health record. It is not the complete legal health record.[facility]
--- OUTSIDE RECORDS SUMMARY | 2025-09-11 08:12 | XMS_ITS | Encounter Summary ---
Author Organization [facility] Address [address] [place] [address] Phone Care Team Providers Care Bone Char Kiln Operator Name Role Phone Elsy Gonzalez OD Primary Care Provider + Diya Gonzalez MD Primary Care Provider Diya Gonzalez MD Unavailable [phone] Diya Gonzalez MD Primary Care Provider Aliya Mckeon MD Unavailable [phone] Iggy Abraham MD Unavailable [phone] Froylan Rosa MD Unavailable Encounter Details Date Type Department Care Team (Late st Contact Info) Description 08/23/2015 Transcribe Orders [facility] Endocrine, Diabetes, and Hypertension [address] [facility] 2nd [place] [address] Celi Alaniz [address] [facility] [place] [address] [email or web address] Thyroid nodule (Primary Dx) Social History [...] goiter documented in this encounter Care Teams Bone Char Kiln Operator Relationship Specialty Start Date End Date Elsy Gonzalez OD [address] [place] [address] PCP - General Optometry 08/23/15 01/28/17 Diya Gonzalez MD [address] [place] [address] PCP - General Internal Medicine 01/29/17 10/20/17 Diya Gonzalez MD [address] [place] [address] PCP - General Internal Medicine 10/21/17 Diya Gonzalez MD [address] [place] [address] Referring Physician Internal Medicine 08/07/17 Aliya Mckeon MD [address] [place] [address] [email or web address] Referring Physician Gastroenterology 11/14/17 Iggy Abraham MD [address] [place] [place] [address] [email or web address] Medical Oncology 01/20/18 Froylan Rosa MD [address] [place] [place] [address] Cardiology 02/27/23 documented as of this encounter Additional Source Comments The information contained in this document represents components of the legal health record. It is not the complete legal health record.[facility]
--- OUTSIDE RECORDS SUMMARY | 2025-09-11 08:12 | XMS_ITS | Encounter Summary ---
Author Organization [facility] Address [address] [place] [address] [place] [address] Phone Care Team Providers Care Graduate Teaching Assistant Name Role Phone Diya Gonzalez MD Unavailable Diya Gonzalez MD Primary Care Provider [phone] Aliya Mckeon MD Unavailable [phone] Iggy Abraham MD Unavailable [phone] Froylan Rosa MD Unavailable Encounter Details Date Type Department Care Team (Late st Contact Info) Description 04/05/2020 Procedure Pass [facility] Endoscopy Department [address] [place] [address] Social History Tobacco Use Types Packs/Day Years [...] documented as of this encounter Care Teams Graduate Teaching Assistant Relationship Specialty Start Date End Date Diya Gonzalez MD PCP - General Internal Medicine 10/21/17 Diya Gonzalez MD Referring Physician Internal Medicine 08/07/17 Aliya Mckeon MD [address] [place] [place] [address] [email or web address] Referring Physician Gastroenterology 11/14/17 Iggy Abraham MD [address] [place] [address] [place] [address] [email or web address] Medical Oncology 01/20/18 Froylan Rosa MD [address] [place] [place] [address] Cardiology 02/27/23 documented as of this encounter Additional Source Comments The information contained in this document represents components of the legal health record. It is not the complete legal health record.[facility]
--- OUTSIDE RECORDS SUMMARY | 2025-09-11 08:12 | XMS_ITS | Encounter Summary ---
Author Organization [facility] Address [address] [place] [address] Phone Care Team Providers Care Spray Dry Operator Name Role Phone Diya Gonzalez MD Primary Care Provider [phone] Diya Gonzalez MD Unavailable [phone] Diya Gonzalez MD Primary Care Provider + [phone] Aliya Mckeon MD Unavailable [phone] Iggy Abraham MD Unavailable [phone] Froylan Rosa MD Unavailable Encounter Details Date Type Department Care Team (Late st Contact Info) Description 07/07/2017 Procedure Pass [facility] Periop [address] [place] [address] Social History Tobacco Use Types Packs/Day Years [...] on filedocumented in this encounter Care Teams Spray Dry Operator Relationship Specialty Start Date End Date Diya Gonzalez MD PCP - General Internal Medicine 01/29/17 10/20/17 Diya Gonzalez MD PCP - General Internal Medicine 10/21/17 Diya Gonzalez MD Referring Physician Internal Medicine 08/07/17 Aliya Mckeon MD [address] [place] [address] [place] [address] [email or web address] Referring Physician Gastroenterology 11/14/17 Iggy Abraham MD [address] [place] [address] [email or web address] Medical Oncology 01/20/18 Froylan Rosa MD [address] [place] [address] [place] [address] Cardiology 02/27/23 documented as of this encounter Additional Source Comments The information contained in this document represents components of the legal health record. It is not the complete legal health record.[facility]
--- OUTSIDE RECORDS SUMMARY | 2025-09-11 08:12 | XMS_ITS | Encounter Summary ---
Author Organization [facility] Address [address] [place] [address] [place] [address] Phone Care Team Providers Care Dining Room Tables Set Up Attendant Name Role Phone Diya Gonzalez MD Unavailable Diya Gonzalez MD Primary Care Provider [phone] Aliya Mckeon MD Unavailable [phone] Iggy Abraham MD Unavailable [phone] Froylan Rosa MD Unavailable Encounter Details Date Type Department Care Team (Late st Contact Info) Description 03/30/2018 Procedure Pass [facility] Endoscopy Department [address] [place] [address] Social History Tobacco Use Types Packs/Day Years [...] documented as of this encounter Care Teams Dining Room Tables Set Up Attendant Relationship Specialty Start Date End Date Diya Gonzalez MD PCP - General Internal Medicine 10/21/17 Diya Gonzalez MD Referring Physician Internal Medicine 08/07/17 Aliya Mckeon MD [address] [place] [place] [address] [email or web address] Referring Physician Gastroenterology 11/14/17 Iggy Abraham MD [address] [place] [address] [place] [address] [email or web address] Medical Oncology 01/20/18 Froylan Rosa MD [address] [place] [place] [address] Cardiology 02/27/23 documented as of this encounter Additional Source Comments The information contained in this document represents components of the legal health record. It is not the complete legal health record.[facility]
--- OUTSIDE RECORDS SUMMARY | 2025-09-11 08:12 | XMS_ITS | Encounter Summary ---
Author Organization [facility] Address [address] [place] [address] [place] [address] Phone Care Team Providers Care Air Conditioner Installer Helper Name Role Phone Diya Gonzalez MD Unavailable Diya Gonzalez MD Primary Care Provider Aliya Mckeon MD Unavailable [phone] Iggy Abraham MD Unavailable [phone] Froylan Rosa MD Unavailable [phone] Encounter Details Date Type Department Care Team (Late st Contact Info) Description 08/07/2022 Ancillary Orders [facility] [address] [address] Eduardo Gonzalez MD [address] [address] Bilateral knee pain Social History Tobacco Use [...] extruded mineralized medial menisci bilaterally. Eileen Duarte JOB PRINTER IMG XR LOWER EXTRE MITY Final Result [...] extruded mineralized medial menisci bilaterally. Eileen Duarte JOB PRINTER IMG XR LOWER EXTRE MITY Final Result documented in this encounter Visit Diagnoses Diagnosis Bilateral knee pain Pain in joint, lower leg Bilateral knee pain Pain in joint, lower leg documented in this encounter Additional Health Concerns Assessment Noted Time PHQ-2 Depression Total Score: 0 11/11/19 18 1:21 PM EST documented as of this encounter Care Teams Air Conditioner Installer Helper Relationship Specialty Start Date End Date Diya Gonzalez MD PCP - General Internal Medicine 10/21/17 Diya Gonzalez MD Referring Physician Internal Medicine 08/07/17 Aliya Mckeon MD [address] [place] [place] [address] [email or web address] Referring Physician Gastroenterology 11/14/17 Iggy Abraham MD [address] [place] [address] [place] [address] [email or web address] Medical Oncology 01/20/18 Froylan Rosa MD [address] [place] [place] [address] Cardiology 02/27/23 documented as of this encounter Additional Source Comments The information contained in this document represents components of the legal health record. It is not the complete legal health record.[facility]
--- OUTSIDE RECORDS SUMMARY | 2025-09-11 08:12 | XMS_ITS | Encounter Summary ---
Author Organization [facility] Address [address] [place] [address] Phone Care Team Providers Care Clothing Presser Name Role Phone Elsy Gonzalez OD Primary Care Provider + Diya Gonzalez MD Primary Care Provider Diya Gonzalez MD Unavailable [phone] Diya Gonzalez MD Primary Care Provider Aliya Mckeon MD Unavailable [phone] Iggy Abraham MD Unavailable [phone] Froylan Rosa MD Unavailable [phone] Encounter Details Date Type Department Care Team (Late st Contact Info) Description 09/10/2016 Ancillary Orders [facility] Endocrine, Diabetes, and Hypertension [address] [facility] [address] [place] [address] Celi Alaniz [address] [place] [address] [email or web address] Nontoxic multinodular goiter Social History [...] 11:44 AM EST TESTS PERFORMED Thyroid/Neck Ultrasound (15842) INDICATIONS/REASONS FOR TESTS Thyroid mass FINDINGS Compared [...] MD - 09/10/2016 TESTS PERFORMED Thyroid/Neck Ultrasound (12467) INDICATIONS/REASONS FOR TESTS Thyroid mass FINDINGS Compared [...] compared to prior scan previously biopsied [facility] Nodule(s) 5-9 mm Single Predominantly solid Left [...] goiter documented in this encounter Care Teams Clothing Presser Relationship Specialty Start Date End Date Carlos Elsy Saavedra OD [address] [place] [address] PCP - General Optometry 08/23/15 01/28/17 Diya Gonzalez MD [address] [place] [address] PCP - General Internal Medicine 01/29/17 10/20/17 Diya Gonzalez MD [address] [place] [address] PCP - General Internal Medicine 10/21/17 Diya Gonzalez MD [address] [place] [address] Referring Physician Internal Medicine 08/07/17 Aliya Mckeon MD [address] [place] [address] [email or web address] Referring Physician Gastroenterology 11/14/17 Iggy Abraham MD [address] [place] [place] [address] [email or web address] Medical Oncology 01/20/18 Froylan Rosa MD [address] [place] [place] [address] Cardiology 02/27/23 documented as of this encounter Additional Source Comments The information contained in this document represents components of the legal health record. It is not the complete legal health record.[facility]
--- OUTSIDE RECORDS SUMMARY | 2025-09-11 08:13 | XMS_ITS | Encounter Summary ---
Author Organization [facility] Address [address] [place] [address] [place] [address] Phone Care Team Providers Care Cloth Napping Supervisor Name Role Phone Diya Gonzalez MD Unavailable [phone] Diya Gonzalez MD Primary Care Provider [phone] Aliya Mckeon MD Unavailable [phone] Iggy Abraham MD Unavailable [phone] Froylan Rosa MD Unavailable Encounter Details Date Type Department Care Team (Late st Contact Info) Description 09/26/2022 Transcribe Orders [facility] Lab Main [address] [place] [address] Sandra Duong, MACHINE WELDER 2013 [facility] [address] [place] [address] [email or web address] Social History Tobacco [...] documented as of this encounter Care Teams Cloth Napping Supervisor Relationship Specialty Start Date End Date Diya Gonzalez MD PCP - General Internal Medicine 10/21/17 Diya Gonzalez MD Referring Physician Internal Medicine 08/07/17 Aliya Mckeon MD [address] [place] [place] [address] [email or web address] Referring Physician Gastroenterology 11/14/17 Iggy Abraham MD [address] [place] [place] [address] [email or web address] Medical Oncology 01/20/18 Froylan Rosa MD [address] [place] [place] [address] Cardiology 02/27/23 documented as of this encounter Additional Source Comments The information contained in this document represents components of the legal health record. It is not the complete legal health record.[facility]
--- OUTSIDE RECORDS SUMMARY | 2025-09-11 08:13 | XMS_ITS | Encounter Summary ---
Author Organization [facility] Address [address] [place] [address] Phone Care Team Providers Care Record Pressman Name Role Phone Diya Gonzalez MD Unavailable Diya Gonzalez MD Primary Care Provider [phone] Aliya Mckeon MD Unavailable [phone] Iggy Abraham MD Unavailable [phone] Froylan Rosa MD Unavailable Encounter Details Date Type Department Care Team (Late st Contact Info) Description 10/09/2022 Procedure Pass [facility] PERIOPERATIVE DEPT 2013 [place] [address] Social History Tobacco Use Types [...] 8:56 PM EST Shannan Zayas RN * [place] Suicide Severity Rating Scale (Screener/Recent Self-Report) Question [...] documented as of this encounter Care Teams Record Pressman Relationship Specialty Start Date End Date Diya Gonzalez MD PCP - General Internal Medicine 10/21/17 Diya Gonzalez MD Referring Physician Internal Medicine 08/07/17 Aliya Mckeon MD [address] [place] [address] [place] [address] [email or web address] Referring Physician Gastroenterology 11/14/17 Iggy Abraham MD [address] [place] [address] [place] [address] [email or web address] Medical Oncology 01/20/18 Froylan Rosa MD [address] [place] [address] [place] [address] Cardiology 02/27/23 documented as of this encounter Additional Source Comments The information contained in this document represents components of the legal health record. It is not the complete legal health record.[facility]
--- OUTSIDE RECORDS SUMMARY | 2025-09-11 08:13 | XMS_ITS | Clinical Summary ---
Author Organization [facility] Address [address] [place] [address] Phone Care Team Providers Care Hangar Attendant Name Role Phone Diya Gonzalez MD Unavailable Diya Gonzalez MD Primary Care Provider Aliya Mckeon MD Unavailable [phone] Iggy Abraham MD Unavailable Froylan Rosa [...] per day (including in other prescribed or ihmf-mmb-nciiupn medications). 0 Active aspirin 81 mg chewable [...] this topic Medical Devices Implanted Type Area Engineering Test Mechanic Device Identifier Shelf Expiration Date Model / Serial / Lot Knee Implant Component Size 10 Femoral Persona [place] Cement Cruciate Retaining Standard Left - [id number] Implanted:Qty: 1 on 05/12/2023 by Eduardo Gonzalez MD at [facility] Left: Knee AMBROCIO BIOMET [id number] 05/05/2032 [id number] / / [id number] Description:The implant type , laterality (when applicable), size, and expiration date have been visually and verbally confirmed by the Surgeon, Circulating RN and Scrub Personnel. Intraoccular Lenses Loop Recorder Description:medtronic - reve al ILNQ [id number] implanted 06/30/2020 Cement Bone 1x40gm Pal[place]os R High Viscosity - [id number] Implanted:Qty: 2 on 10/09/2022 by Eduardo Gonzalez MD at [facility] Right: Knee [employer] [id number] 03/05/2026 [id number] / / [id number] Description:The implant type , laterality (when applicable), size, and expiration date have been visually and verbally confirmed by the Surgeon, Circulating RN and Scrub Personnel. Knee Implant Component Size 10 Femoral Persona [place] Cement Cruciate Retaining Standard Right - [id number] Implanted:Qty: 1 on 10/09/2022 by Eduardo Gonzalez MD at [facility] Right: Knee AMBROCIO BIOMET [id number] 10/31/2031 [id number] / / [id number] Description:The implant type , laterality (when applicable), size, and expiration date have been visually and verbally confirmed by the Surgeon, Circulating RN and Scrub Personnel. Knee Implant 5.0deg Component Tibial Persona Titanium Stemmed Cemented Rt Size G - [id number] Implanted:Qty: 1 on 10/09/2022 by Eduardo Gonzalez MD at [facility] Right: Knee AMBROCIO BIOMET [id number] 01/22/2032 [id number] / / [id number] Description:The implant type , laterality (when applicable), size, and expiration date have been visually and verbally confirmed by the Surgeon, Circulating RN and Scrub Personnel. Knee Patella 35mm Madelaine Persona All Polyethylene Cemented Conventional - [id number] Implanted:Qty: 1 on 10/09/2022 by Eduardo Gonzalez MD at [facility] Right: Knee AMBROCIO BIOMET [id number] 08/04/2027 [id number] / / [id number] Description:The implant type , laterality (when applicable), size, and expiration date have been visually and verbally confirmed by the Surgeon, Circulating RN and Scrub Personnel. Knee Implant 12mm 8 11 Component Articular Surface Persona Polyethylene Vivacite E Cruciate Retaining Fixed Rt Gh - [id number] Implanted:Qty: 1 on 10/09/2022 by Eduardo Gonzalez MD at [facility] Right: Knee AMBROCIO BIOMET [id number] 01/29/2027 [id number] / / [id number] Description:The implant type , laterality (when applicable), size, and expiration date have been visually and verbally confirmed by the Surgeon, Circulating RN and Scrub Personnel. Knee Implant 5deg Component Tibial Persona Titanium Stemmed Cemented Lt Size F - [id number] Implanted:Qty: 1 on 05/12/2023 by Eduardo Gonzalez MD at [facility] Left: Knee AMBROCIO BIOMET [id number] 01/26/2033 [id number] / / [id number] Description:The implant type , laterality (when applicable), size, and expiration date have been visually and verbally confirmed by the Surgeon, Circulating RN and Scrub Personnel. Knee Implant 10mm 8 11 Component Articular Surface Persona Polyethylene Vivacite E Cruciate Retaining Fixed Lt Ef - [id number] Implanted:Qty: 1 on 05/12/2023 by Eduardo Gonzalez MD at [facility] Left: Knee AMBROCIO BIOMET [id number] 02/12/2028 [id number] / / [id number] Description:The implant type , laterality (when applicable), size, and expiration date have been visually and verbally confirmed by the Surgeon, Circulating RN and Scrub Personnel. Knee Patella 35mm Madelaine Persona All Polyethylene Cemented Conventional - [id number] Implanted:Qty: 1 on 05/12/2023 by Eduardo Gonzalez MD at [facility] Left: Knee AMBROCIO BIOMET 02/10/2028 [id number] / / [id number] Description:The implant type , laterality (when applicable), size, and expiration date have been visually and verbally confirmed by the Surgeon, Circulating RN and Scrub Personnel. Cement Bone 40g Palacos R High Viscosity Cs/20ea - Uom Issue Replaced By Ps# [id number] - [id number] Implanted:Qty: 2 on 05/12/2023 by Eduardo Gonzalez MD at [facility] Left: Knee [employer] 10/05/2027 [id number] / / [id number] Urban Forester Component L 30mm Od 14 Knee Persona Extension Tivanium Cemented Tapered - [id number] Implanted:Qty: 1 on 05/12/2023 by Eduardo Gonzalez MD at [facility] Left: Knee AMBROCIO BIOMET [id number] 03/07/2033 [id number] / / [id number] Description:The implant type , laterality (when applicable), size, and expiration date have been visually and verbally confirmed by the Surgeon, Circulating RN and Scrub Personnel. Insurance [employer] MEDEX SUPPLEMENT MEDICARE PART A & B [employer] MEDEX SUPPLEMENT MEDICARE PART A & B [employer] MEDEX SUPPLEMENT MEDICARE PART A & B [employer] MEDEX SUPPLEMENT MEDICARE PART A & B [employer] MEDEX SUPPLEMENT MEDICARE PART A & B [employer] MEDEX SUPPLEMENT MEDICARE PART A & B [employer] MEDEX SUPPLEMENT [employer] MEDEX SUPPLEMENT [employer] MEDEX SUPPLEMENT Advance Directives For more information, please contact: [phone] (9AM - 5PM [facility], Friday-Friday) Documents on File Type Date Recorded Patient International Controller Expl anation Healthcare Proxy 07/07/2017 6:09 AM MAUR[address]IO DL * Full Code (Latest Code Status on File) Date Activated Date Inactivated Comments 10/09/2022 8:41 PM Question Answer Comments Code Status Confirmed With: Patient * Full Code (Presumed) Date Activated Date Inactivated Comments 07/07/2017 11:10 AM 07/08/2017 10:52 AM Care Teams Hangar Attendant Relationship Specialty Start Date End Date Diya Gonzalez MD PCP - General Internal Medicine 10/21/17 Diya Gonzalez MD Referring Physician Internal Medicine 08/07/17 Aliya Mckeon MD [address] [place] [address] [email or web address] Referring Physician Gastroenterology 11/14/17 Iggy Abraham MD [address] [place] [address] [email or web address] Medical Oncology 01/20/18 Froylan Rosa MD [address] [place] [address] Cardiology 02/27/23 Additional Source Comments The information contained in this document represents components of the legal health record. It is not the complete legal health record.[facility]
== END 2025-09-11 08:10 | disposition home or self-care (01) ==
LOC: HO.MRI 08:09
PROVIDERS: PCP Internal Medicine; Visit Provider Internal Medicine
DX: R41.3 Other amnesia (principal)
CPT/HCPCS: 70551